=== PATIENT | female | born 1980 | race Caucasian/White ===

== ENCOUNTER 2016-11-14 09:03 | Emergency (ER) | payer OTHER ==
[2016-11-14] MEDS: NS 0.9% 1000 ML* 2,000 ML IV ONE (09:51)
[2016-11-14 10:06] LABS: Hematocrit 39 % (35-47); Hemoglobin 13.7 g/dl (12.0-16.0); Mean Corpuscular HGB Conc 35 g/dl (31-36); Mean Corpuscular Hemoglobin 33 pg (27-31); Mean Corpuscular Volume 94 fL (80-97); Mean Platelet Volume 10 um3 (7.4-10.4); Red Blood Count 4.19 10^6/ul (4.0-5.4); Red Cell Distribution Width 13 % (10.5-15); White Blood Count 6.8 10^3/ul (3.5-10.8)
--- NOTE | 2016-11-14 10:12 | RAD ---
INDICATION: Short of breath COMPARISON: December 29, 2013 TECHNIQUE: PA and lateral dual-energy views were obtained. FINDINGS: Bones/Soft Tissues: There are no acute bony findings. Cardiomediastinal: The cardiomediastinal silhouette is normal. Lungs: There are no infiltrates. Pleura: There are no pleural effusions. Other: None IMPRESSION: NO ACTIVE DISEASE.
[2016-11-14] MEDS ORDERED: Al Hydrox/Mg Hydrox/Simet LIQ* 30 ML UDC PO ONE (10:22)
[2016-11-14] MEDS ORDERED: Lidocaine 2% VISCOUS* 15 ML UDC PO ONE (10:22)
[2016-11-14 10:27] LABS: ALT 13 U/L (7-52); AST 17 U/L (13-39); Albumin 4.2 g/dL (3.2-5.2); Alkaline Phosphatase 70 U/L (34-104); Anion Gap 10 mmol/L (2-11); BUN/Creatinine Ratio 13.9 (8-20); Blood Urea Nitrogen 11 mg/dL (6-24); CO2 Carbon Dioxide 21 mmol/L (22-32); Calcium 9.3 mg/dL (8.6-10.3); Chloride 103 mmol/L (101-111); EGFR African American 104.7 (>60); EGFR Non-African American 81.4 (>60); Globulin 3.3 g/dL (2-4); Glucose 85 mg/dL (70-100); Lipase 18 U/L (11.0-82.0); Potassium 3.7 mmol/L (3.5-5.0); Sodium 134 mmol/L (133-145); Total Protein 7.5 g/dL (6.4-8.9)
--- NOTE | 2016-11-14 10:56 | RAD ---
HISTORY: Epigastric pain, history of gallstones COMPARISONS: CT dated August 01, 2016 TECHNIQUE: Multiple transverse and longitudinal ultrasound images were obtained of the right upper quadrant of the abdomen using grayscale and color Doppler imaging. FINDINGS: LIVER: The liver is normal in shape, size, contour, and echogenicity. There are no focal parenchymal masses. There is normal hepatopedal flow of the portal vein on Doppler imaging. BILIARY TREE: There is no intrahepatic or extrahepatic biliary dilatation. The common duct measures 0.4 cm. GALLBLADDER: The gallbladder is distended. Multiple shadowing echogenic foci consistent with gallstones are noted. There is no gallbladder wall thickening, or pericholecystic fluid. The technologist reports a positive sonographic Rhodes sign.. PANCREAS: The head of the pancreas is unremarkable. The tail of the pancreas is not well visualized secondary to overlying bowel gas. RIGHT KIDNEY: The right kidney is normal in shape, size, contour, and echogenicity. There is no hydronephrosis or nephrolithiasis. The right kidney measures 11.5 x 5.4 x 5.8 cm. AORTA AND IVC: The aorta and IVC are unremarkable. FLUID: There are no pleural effusions. There is no free fluid within the hepatorenal recess. OTHER FINDINGS: None. IMPRESSION: CHOLELITHIASIS, WITH A POSITIVE SONOGRAPHIC RHODES SIGN. THE IMAGING FEATURES ARE INDETERMINATE FOR ACUTE CHOLECYSTITIS.
--- NOTE | 2016-11-14 11:19 | ED ---
Abdominal Pain/Female - HPI Summary HPI Summary: 36F presents with epigastric pain and SOB for 2 months that got worst last night. She had an endoscope gone a week ago that was normal. She had a CT done a month ago that was normal. She has had SOB with the pain before. It has been found that she has had gallstones before. She states she came in because the pain has been intense. She denies any fever, nausea, vomiting, diarrhea, or constipation. She denies any chest pain. She denies any family history of UC or Crohns. She denies any dysuria, hematuria, flank pain, frequency, hematuria. She denies any blood in her stool. She has a family history of heart disease. She denies any DM or HTN. She is not a smoker. She denies any cough. She has been on acid reflux medication before without relief. She states the pain is worst with food. - History of Current Complaint Chief Complaint: EDAbdPain Stated Complaint: ABD PAIN, SHORT OF BREATH Time Seen by Provider: 11/14/16 09:12 Hx Last Menstrual Period: END NOVEMBER Pain Intensity: 8 Allergies/Adverse Reactions: Allergies Allergy/AdvReac Type Severity Reaction Status Date / Time Sulfa Antibiotics Allergy Severe Hives Verified 08/01/16 09:24 PMH/Surg Hx/FS Hx/Imm Hx Endocrine/Hematology History: Reports: Hx Thyroid Disease - HYPO Denies: Hx Diabetes Cardiovascular History: Denies: Hx Hypertension History: Denies: Hx Dialysis, Hx Renal Disease - Surgical History Surgery Procedure, Year, and Place: THYROID DUCT CYST REMOVED Infectious Disease History: No Infectious Disease History: Denies: Traveled Outside the [place] in Last 30 Days - Family History Known Family History: Positive: Cardiac Disease - Social History Alcohol Use: Occasionally Substance Use Type: Reports: None Smoking Status (MU): Never Smoked Tobacco Review of Systems Negative: Fever Negative: Chest Pain Positive: Shortness Of Breath Positive: Abdominal Pain - epigastric. Negative: Vomiting, Diarrhea, Nausea All Other Systems Reviewed And Are Negative: Yes Physical Exam Triage Information Reviewed: Yes Vital Signs On Initial Exam: Initial Vitals Temp Pulse Resp BP Pulse Ox 98 F 72 18 116/67 100 11/14/16 09:04 11/14/16 09:04 11/14/16 09:04 11/14/16 09:04 11/14/16 09:04 Vital Signs Reviewed: Yes Appearance: Positive: Well-Appearing Skin: Positive: Warm, Dry Head/Face: Positive: Normal Head/Face Inspection Eyes: Positive: Normal, Conjunctiva Clear Respiratory/Lung Sounds: Positive: Clear to Auscultation, Breath Sounds Present Cardiovascular: Positive: Normal, RRR Abdomen Description: Positive: Soft, Other: - tender in epigastric region, neg booker test, no rebound Bowel Sounds: Positive: Present - Sarabjit Coma Scale Coma Scale Total: 15 Diagnostics - Vital Signs Vital Signs Temp Pulse Resp BP Pulse Ox 11/14/16 09:39 98 F 72 16 116/67 100 11/14/16 09:04 98 F 72 18 116/67 100 - Laboratory Lab Results: Lab Results 11/14/16 11/14/16 11/14/16 Range/Units 09:50 09:50 09:50 WBC 6.8 (3.5-10.8) 10^3/ul RBC 4.19 (4.0-5.4) 10^6/ul Hgb 13.7 (12.0-16.0) g/dl Hct 39 (35-47) % MCV 94 (80-97) fL MCH 33 H (27-31) pg MCHC 35 (31-36) g/dl RDW 13 (10.5-15) % Plt Count 227 (150-450) 10^3/ul MPV 10 (7.4-10.4) um3 Neut % (Auto) 77.4 (38-83) % Lymph % (Auto) 17.8 L (25-47) % [place] % (Auto) 3.7 (1-9) % Eos % (Auto) 0.5 (0-6) % Baso % (Auto) 0.6 (0-2) % Absolute Neuts (auto) 5.3 (1.5-7.7) 10^3/ul Absolute Lymphs (auto) 1.2 (1.0-4.8) 10^3/ul Absolute Monos (auto) 0.2 (0-0.8) 10^3/ul Absolute Eos (auto) 0 (0-0.6) 10^3/ul Absolute Basos (auto) 0 (0-0.2) 10^3/ul Absolute Nucleated RBC 0.01 10^3/ul Nucleated RBC % 0.1 D-Dimer, Quantitative < 200 (Less Than 230) ng/mL Sodium 134 (133-145) mmol/L Potassium 3.7 (3.5-5.0) mmol/L Chloride 103 (101-111) mmol/L Carbon Dioxide 21 L (22-32) mmol/L Anion Gap 10 (2-11) mmol/L BUN 11 (6-24) mg/dL Creatinine 0.79 (0.51-0.95) mg/dL Est GFR ( Amer) 104.7 (>60) Est GFR (Non-Af Amer) 81.4 (>60) BUN/Creatinine Ratio 13.9 (8-20) Glucose 85 (70-100) mg/dL Calcium 9.3 (8.6-10.3) mg/dL Total Bilirubin 0.80 (0.2-1.0) mg/dL AST 17 (13-39) U/L ALT 13 (7-52) U/L Alkaline Phosphatase 70 (34-104) U/L Troponin I 0.00 (<0.04) ng/mL C-React Prot High Sens 5.33 mg/L Total Protein 7.5 (6.4-8.9) g/dL Albumin 4.2 (3.2-5.2) g/dL Globulin 3.3 (2-4) g/dL Albumin/Globulin Ratio 1.3 (1-3) Lipase 18 (11.0-82.0) U/L Beta HCG, Quant < 0.60 mIU/mL Result Diagrams: 11/14/16 09:50 11/14/16 09:50 Lab Statement: Any lab studies that have been ordered have been reviewed, and results considered in the medical decision making process. - Radiology chest Xray Interpretation: No Acute Changes Radiology Interpretation Completed By: Radiologist - Ultrasound No standard instances Ultrasound Interpretation: Positive (See Comments) - IMPRESSION: CHOLELITHIASIS , WITH A POSITIVE SONOGRAPHIC BOOKER SIGN. THE IMAGING FEATURES ARE INDETERMINATE FOR ACUTE CHOLECYSTITIS. Ultrasound Interpretation Completed By: Radiologist - EKG No standard instances Cardiac Rate: NL EKG Rhythm: Sinus Rhythm ST Segment: Normal Abdominal Pain Fem Course/Dx - Course Course Of Treatment: 36F presents with epigastric pain and SOB for 2 months that got worst last night. She had an endoscope gone a week ago that was normal. She had a CT done a month ago that was normal. She has had SOB with the pain before. It has been found that she has had gallstones before. She states she came in because the pain has been intense. She denies any fever, nausea, vomiting, diarrhea, or constipation. She denies any chest pain. She states the pain is worst with food. on exam tender in epigastric region, no rebound, neg booker. labs normal WBC and crp, u/a normal, LFT normal. ekg normal. troponin, d-dimer, and chest xray normal. u/s shows gallstones. spoke dr jimenez said follow up in office. patient understands and agrees with plan - Diagnoses Differential Diagnosis: Positive: Gall Bladder Disease, Peptic Ulcer Disease, Urinary Tract Infection Provider Diagnoses: Cholelithiasis, Epigastric pain Discharge - Discharge Plan Condition: Good Disposition: HOME Patient Education Materials: Gallstones (ED) Referrals: Avery Joy DO [Primary Care Provider] - Cesia Jimenez MD [Medical Doctor] - Additional Instructions: Take Tylenol or ibuprofen for pain every 6 hours Follow up with primary within 7 days Follow up with surgery Follow a low fat diet to discourage gall bladder from katelyn Return to ED if develop any fever, severe vomiting, or any new or worsening symptoms
[2016-11-14 11:59] VITALS: BP 117/59
[2016-11-14 12:01] LABS: Urine Bacteria Absent (Absent); Urine Bilirubin Negative (Negative); Urine Glucose Negative (Negative); Urine Nitrite Negative (Negative)
== END 2016-11-14 11:57 | disposition home or self-care (01) ==
LOC: ED 09:03
DX: R10.13 Epigastric pain (principal); R06.02 Shortness of breath; K80.20 Calculus of gallbladder without cholecystitis without obstruction
CPT/HCPCS: 36415; 71020; 76705; 80053; 81003; 81015; 83690; 84484; 84702; 85025; 85379; 86141; 93005; 96360; 99282; A9270-GY

== ENCOUNTER 2016-11-17 07:33 | Day surgery (SDC) | payer OTHER ==
[~2016-11-17 07:33] MED LIST: Buffered Lidocaine 0.9% SYRIN* 5 ML/SYR SYRINGE INTRADERM ONE; Sodium Citrate/Citric Acid* 15 ML UDC PO ONE
[2016-11-17 08:04] LABS: UR Preg Internal Control QC Line Present
[2016-11-17] MEDS ORDERED: Sodium Citrate/Citric Acid* 15 ML UDC ONE (08:09)
[2016-11-17] MEDS ORDERED: ceFAZolin 2 GM PREMIX(*) 2 GM/50 ML BAG IVPB ONE (08:09)
[2016-11-17] MEDS ORDERED: Buffered Lidocaine 0.9% SYRIN* 5 ML/SYR SYRINGE ONE (08:09)
[2016-11-17] MEDS ORDERED: Ketorolac INJ* 30 MG/ML 1 ML VIAL ONE (08:09)
[2016-11-17] MEDS ORDERED: Bupivacaine 0.25% EPI 200,000* 30 ML SDV ONE (09:01)
[2016-11-17] MEDS ORDERED: Neostigmine Methylsulfate* 2 MG/2 ML SYRINGE ONE (09:21)
[2016-11-17] MEDS ORDERED: Dexamethasone IV* 4 MG/ML 1 ML (4 MG) ONE (09:21)
[2016-11-17] MEDS ORDERED: Propofol* 10 MG/ML 20 ML BTL IV PUSH ONE (09:21)
[2016-11-17] MEDS ORDERED: Lidocaine 2% PF * 5 ML VIAL ONE (09:21)
[2016-11-17] MEDS ORDERED: Glycopyrrolate IV* 0.2 MG/ML 1 ML VIAL ONE (09:21)
[2016-11-17] MEDS ORDERED: fentaNYL* 50 MCG/ML 2 ML VIAL (100 MCG VIAL) ONE ×2 (09:21→10:55)
[2016-11-17] MEDS ORDERED: Rocuronium* 10 MG/ML VIAL ONE (09:25)
[2016-11-17] MEDS ORDERED: DiMENhydriNATE IV* 50 MG/ML VIAL IV PUSH PRN (09:52)
--- NOTE | 2016-11-17 10:28 | PN ---
Progress Note - Progress Note Date of Service: 11/17/16 Note: Brief Operative Note Operation date: 11/17/2016 Preoperative diagnosis: cholelithiasis Postoperative diagnosis: Same Procedure: Laparoscopic Cholecystectomy Surgeon: Dr. Romo Assist: Maggy JOHN, TYLER CarltonS Anesthesia: General EBL: 30 mL Fluids: 1500 mL LR Specimen: Gallbladder Drain: none Findings: See dictated note
[2016-11-17] MEDS ORDERED: HYDROcodone/ACETAMIN 5-325 MG* 1 TAB PO PRN (10:29)
[2016-11-17] MEDS ORDERED: HYDROcodone/ACETAMIN 5-325 MG* 1 TAB ONE (10:55)
[2016-11-17] MEDS: fentaNYL* 50 MCG/ML 2 ML VIAL (100 MCG VIAL) IV PRN ×4 (10:57→11:09)
[2016-11-17 12:17] VITALS: BP 105/56
--- NOTE | 2016-11-17 15:00 | OP ---
CC: Dr. Avery Joy * DATE OF OPERATION: 11/17/16 - [facility] DATE OF : 76 SURGEON: Odilon Romo MD BUTTER LIQUEFIER: VELVET Ruff ANESTHESIOLOGIST: Dr. Ender Garcia. ANESTHESIA: General anesthetic and local infiltration by the surgeon. PRE-OP DIAGNOSIS: Symptomatic cholelithiasis. POST-OP DIAGNOSIS: Symptomatic cholelithiasis. OPERATIVE PROCEDURE: Laparoscopic cholecystectomy. DESCRIPTION OF PROCEDURE: The patient was supine on the operating room table. After adequate general anesthetic, compression stockings, Lisseth Hugger warmer, and intravenous antibiotics, the abdomen was prepped with antiseptic and draped in a sterile fashion. Local infiltrative anesthesia was administered. Small umbilical incision was created. A blunt port was cannula was placed. Insufflation was carried out with carbon dioxide. Additional cannulae, 12 mm subxiphoid and 5 mm right upper quadrant and right anterior axillary line were placed through small stab wounds under direct vision. The gallbladder was tended up. The areolar tissue was taken down and the cystic duct and cystic artery were readily identified, clipped, and divided. The cystic-common duct junction was readily identified and kept out of harm's way. The gallbladder was taken off the liver bed without difficulty. Hemostasis was obtained using electrocautery. The gallbladder was removed through the subxiphoid port, which needed to be enlarged somewhat for the magnitude of the stones. The operative site was again examined. Hemostasis was good. The cannulae were removed. Pneumoperitoneum allowed to escape. Umbilical and epigastric fascia were closed with 0 Polysorb, skin with 5-0 Polysorb followed by Steri-Strips. She tolerated the procedure well, was awakened and brought to Recovery in good condition. No complications. No drains. Pathologic specimen is gallbladder. Sponge and instrument counts correct. Estimated blood loss is 30 mL. [id number]/[facility] #: [id number] MTDD
== END 2016-11-17 12:43 | disposition home or self-care (01) ==
LOC: OR 07:33
PROVIDERS: ATTEND Surgery
DX: K80.10 Calculus of gallbladder with chronic cholecystitis without obstruction (principal); E03.9 Hypothyroidism, unspecified; M19.90 Unspecified osteoarthritis, unspecified site
CPT/HCPCS: 81025; 88304; A9270-GY; J0690; J1100; J1885; J2704; J3010

== ENCOUNTER 2017-11-20 15:43 | Emergency (ER) | payer OTHER ==
[2017-11-20 16:05] VITALS: BP 119/71
--- NOTE | 2017-11-20 16:32 | UC ---
Knee Pain HPI - HPI Summary HPI Summary: 37 yo female presents with chronic right knee pain. She tells me that she is followed by Dr. Rubin for this and has seen him within the last month. He is working to get "gel injections" approved by her insurance. Over the last 2-3 days she has had increased right knee pain. No injury. She called Dr. Rubin would could not see her today and recommended that she come to urgent care. Pt is scheduled to get a knee brace fitted in [address] Rubin. Pt denies numbness or tingling. - History of Current Complaint Chief Complaint: UCLowerExtremity Stated Complaint: KNEE INJURY Time Seen by Provider: 11/20/17 16:32 Hx Obtained From: Patient Hx Last Menstrual Period: end of September 2017 Onset/Duration: Gradual Onset Severity Initially: Severe Severity Currently: Severe Pain Intensity: 10 Pain Scale Used: 0-10 Numeric - Allergies/Home Medications Allergies/Adverse Reactions: Allergies Allergy/AdvReac Type Severity Reaction Status Date / Time Sulfa (Sulfonamide Allergy Severe Hives Verified 11/20/17 16:06 Antibiotics) PMH/Surg Hx/FS Hx/Imm Hx Previously Healthy: Yes Endocrine History: Hypothyroidism Psychological History: Anxiety, Depression - Surgical History Surgical History: Yes Surgery Procedure, Year, and Place: THYROID DUCT CYST REMOVED. ENDOSCOPY - Family History Known Family History: Positive: Cardiac Disease - Social History Occupation: Employed Full-time Lives: With Family Alcohol Use: None Substance Use Type: None Smoking Status (MU): Never Smoked Tobacco Review of Systems Constitutional: Negative Skin: Negative Respiratory: Negative Cardiovascular: Negative Neurovascular: Negative Musculoskeletal: Other: - Right knee pain Neurological: Negative Psychological: Negative All Other Systems Reviewed And Are Negative: Yes Physical Exam - Summary Physical Exam Summary: GENERAL: NAD. WDWN. No pain distress. SKIN: No rashes, sores, lesions, or open wounds. NECK: Supple. Nontender. No lymphadenopathy. CHEST: No accessory muscle use. Breathing comfortably and in no distress. CV: Pulses intact popliteal, PT, and DP. Brisk cap refill. MSK: RIGHT KNEE: TTP about all right knee with no specific tenderness. Strength 5/5. No edema or obvious bony deformities. Negative Ariadne, A/P drawer, Jose, and varus/valgus stress. NEURO: Alert. Sensations intact and symmetric B/L LEs PSYCH: Age appropriate behavior. Triage Information Reviewed: Yes Vital Signs: Initial Vital Signs Temp 98.2 F 11/20/17 16:02 Pulse 72 11/20/17 16:02 Resp 12 11/20/17 16:02 BP 119/71 11/20/17 16:02 Pulse Ox 100 11/20/17 16:02 Knee Pain Course/Dx - Course Course Of Treatment: Pt declined XR today as she had an XR and an MRI about a month ago from Dr. Rubin. Toradol IM 30mg given in clinic and crutches provided as she has pain with ambulation. Advised to schedule a f/u with Dr. Rubin this week - Differential Dx/Diagnosis Provider Diagnoses: Right knee pain Discharge - Sign-Out/Discharge Documenting (check all that apply): Discharge/Admit/Transfer - Discharge Plan Condition: Stable Disposition: HOME Patient Education Materials: Crutch Instructions (ED), Knee Pain (ED) Forms: *Work Release Referrals: Avery Joy DO [Primary Care Provider] - Johnnie Rubin MD [Medical Doctor] - As Soon As Possible Additional Instructions: If you develop a fever, shortness of breath, chest pain, new or worsening symptoms - please call your PCP or go to the ED. 1) Please schedule a follow up appointment with Dr. Rubin as soon as possible - Billing Disposition and Condition Condition: STABLE Disposition: Home
[2017-11-20] MEDS ORDERED: Ketorolac INJ* 30 MG/ML 1 ML VIAL IM ONE (16:48)
== END 2017-11-20 17:35 | disposition home or self-care (01) ==
LOC: UCEAST 15:43
DX: M25.561 Pain in right knee (principal); G89.29 Other chronic pain; Z88.2 Allergy status to sulfonamides
CPT/HCPCS: 96372; 99212; G0463; J1885

== ENCOUNTER 2018-11-07 16:25 | Emergency (ER) | payer OTHER ==
[2018-11-07 16:31] VITALS: BP 104/63
--- OUTSIDE RECORDS SUMMARY | 2018-11-07 16:31 | XMS REPORT | Continuity of Care Document ---
:1980 External Reference #:[id number] Author Name Saeid Swartz M.D. Address [address] [facility] [address] [place] [address] Care Team Providers Name Role Phone HCP given Primary Care Physician Unavailable Payers Date Identification Numbers Payment Provider Subscriber Effective: Policy Number: [id number] [facility] Fredis Sr 2016 PayID: [id number] [address] [place] [address] Problems Active Problems Provider Date Hypothyroidism Avery Joy D.O. Onset: 04/18/2014 Vitamin D deficiency Avery Joy D.O. Onset: 09/25/2014 Migraine with typical aura Avery Joy D.O. Onset: 09/25/2014 Localized, primary osteoarthritis Saeid Swartz M.D. Onset: 12/29/2017 Low back pain Saeid Swartz M.D. Onset: 12/29/2017 Resolved Problems Moderate recurrent major depression Avery Joy D.O. Onset: 09/25/2014 Resolved: 01/15/2016 Generalized anxiety disorder Avery Joy D.O. Onset: 09/25/2014 Resolved: 01/15/2016 Insomnia Avery Joy D.O. Onset: 10/30/2014 Resolved: 01/15/2016 Chronic pharyngitis Avery Joy D.O. Onset: 09/25/2014 Resolved: 01/15/2016 Amenorrhea Avery Joy D.O. Onset: 10/22/2015 Resolved: 01/15/2016 Dizziness and giddiness Avery Joy D.O. Onset: 10/22/2015 Resolved: 01/15/2016 Visual field defect Avery Joy D.O. Onset: 10/22/2015 Resolved: 01/15/2016 Malaise and fatigue Patty Perales RPA-C Onset: 07/25/2014 Resolved: 01/15/2016 Disorder of thyroid gland Avery Joy D.O. Onset: 08/25/2014 Resolved: 01/15/2016 Neck pain Avery Joy D.O. Onset: 01/01/2014 Resolved: 01/15/2016 Benign paroxysmal positional vertigo Avery Joy D.O. 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 Tobacco Use Reviewed: 04/14/17 Never Smoked Cigarettes Smoking Status Reviewed: 04/14/17 Never Smoked Cigarettes ETOH Use Rarely consumes alcohol Recreational Drug Use Denies Drug Use Tobacco Use Start: Unknown Patient has never smoked Tobacco Use Start: Unknown Non Smoker Exercise Type/Frequency Exercises regularly every day working out # [employer] 1-5 Allergies, Adverse Reactions, Alerts Active Allergies Reaction Severity Comments Date Sulfa hives 12/21/2011 Medications Active Medications SIG Qnty Indications Ordering Date Provider Cane use as needed M25.561 Saeid Swartz, 11/02/2018 [facility] [place] Multivitamin Adult 1 by mouth every Unknown 11/01/2018 day Tablets Levothyroxine Sodium 1 by mouth every E03.9 Saeid Swartz, 09/14/2018 morning on an M.D. 75mcg Tablets empty stomach; blood test due November 2018 Lo Loestrin Fe take one a day as Unknown 09/13/2018 1mg-10 mcg directed starting / 10 mcg Tablets on 09/16/18 Iron (OTC) one po daily Unknown 08/31/2018 Vitamin D3 1 tab by mouth 90tabs E55.9 Avery Joy, 09/25/2014 5000Unit every day or 7 D.O. Tablets tabs once a week Vitamin B12 1 daily Unknown 2500mcg History Medications Levothyroxine Sodium Take 1 Tablet By 90tabs [facility]03.9 [facility] 09[facility]2018 - 75mcg Mouth Dianna Varela 11/02/2018 Tablets Daily-Alternate With 50mcg For Average Of 62.5MG Dose Daily Celecoxib 1 by mouth every day 30caps M25.561 [facility] [place], 08/06/2018 - 200mg Capsules as needed for knee Daniela Breaux 09/14/2018 pain Levothyroxine Sodium take 1 tablet by 45tabs E03.9 [place], 03/14/2018 - 50mcg mouth every other Daniela Breaux 09/14/2018 Tablets day (alternating with 75mcg dose), in the morning, on an empty stomach; for thyroid Metaxalone 1 by mouth three 30tabs M54.9 [facility] [place] 03/14/2018 - 800mg Tablets times a day as Daniela Breaux 03/24/2018 needed for upper back, shoulder and chest pain Lidocaine apply 12 hours on 12 30units B02.9 [facility], 01/13/2018 - 5% Patches hours off as needed Dianna Varela 03/13/2018 to area of pain. Valacyclovir HCL 1 three times a day 30tabs B02.9 [facility], 01/13/2018 - 1gm for 10 days Dianna Varela 01/23/2018 Tablets Cymbalta 2 by mouth every Unknown 12/28/2017 - 60mg Caps DR Massimo waters, for back 09/13/2018 pain Hydroxychloroquine 2 tabs once daily, Mohan Osborne 10/16/2017 - Sulfate for arthritis diann Suarez 09/13/2018 200mg Tablets Aleve one tab po twice day Unknown 10/16/2017 - 220mg Tablets 09/13/2018 Doxycycline Hyclate 1 twice a day for 28 56caps A69.23 [facility], 2017 - 100mg days Aleyda VarelaO. 10/11/2017 Capsules Naproxen Unknown 09/12/2017 - 11/10/2017 Tramadol HCL 1-2 by mouth every 6 60tabs A69.23 [place], 06/14/2017 - 50mg Tablets hours as needed for Avery D.OStefani 07/14/2017 pain Amoxicillin 1 po tid x 28days 84tabs A69.23 [place], 06/12/2017 - 500mg Tablets Avery D.OStefani 07/10/2017 Benzonatate 1 by mouth three 30caps R05 [place], 04/14/2017 - 200mg Capsules times a day as Daniela Breaux 04/24/2017 needed for cough Prednisone 1 per morning x 5 5tabs J20.9 [place], 04/04/2017 - 20mg Tablets days for bronchitis Daniela Breaux 04/12/2017 Meloxicam 1 tablet by mouth Mohan Osborne 03/08/2017 - 7.5mg Tablets twice daily t M.DStefani 06/11/2017 Diclofenac Sodium apply 4 g of gel to 100gm M25.561 [place] 01/26/2017 - 1% Gel affected area 4 Daniela Breaux 02/25/2017 times daily (maximum: 16 g per joint per day) for knee pain M25.562 Azithromycin take 2 tablets by 6tabs Avery Joy, 12/02/2016 - 250mg mouth one time on the D.O. 12/07/2016 Tablets first day then take 1 tablet by mouth daily for 4 days Ventolin HFA inhale 2 puffs by 8gm J98.1 Avery Joy, 11/29/2016 - mouth every 4 hours 1 D.O. 06/11/2017 108(90Base) mcg/Act as needed for Aerosol bronchospasm Omeprazole 1 by mouth every day 30caps R10.1 Avery Joy, 09/01/2016 - 40mg 3 D.O. 10/23/2016 Capsules Famotidine take 1 tablet by 60tabs R10.1 Avery Joy 08/29/2016 - 40mg mouth 2 times per day 3 D.O. 10/23/2016 Tablets for gastroesophageal reflux disease Meloxicam take 1 tablet twice Jeramie Osborne 08/16/2016 - 7.5mg daily as needed M.DStefani 11/28/2016 Tablets Hydrocodone 1 by mouth every 4-6 30tabs 723.1 Avery Joy, 06/17/2016 - Bitartrate/Acetamino hours as needed for D.O. 11/28/2016 phen extreme pain. 5-300mg Tablets Tramadol HCL 1-2 by mouth every 6 120tabs M79.7 Avery Joy, 2016 - 50mg hours as needed for D.O. 06/15/2016 Tablets pain Tramadol HCL 1-2 by mouth every 6 30tabs 724.3 Saeid Swartz, 2015 - 50mg hours as needed for M.D. 05/23/2016 Tablets pain Baclofen 1 cap by mouth at 30tabs M79.7 Avery Joy, 04/28/2016 - 20mg Tablets night for muscle D.O. 05/07/2016 spasm/pain Wrist Immobilizer use as directed 1units M25.5 Saeid Swartz, 2015 - (Right) 31 M.D. 06/11/2017 Diclofenac Sodium Apply pea sized 100gm M22.4 Avery Joy, 10/22/2015 - 1% amount to both knee 1 D.O. 10/23/2016 Gel twice a day as needed for knee pain Arnica use twice a day to 45gm M22.4 Avery Joy, 10/22/2015 - Gel knees for pain 2 D.O. 10/23/2016 Ortho Tri-Cyclen 1 by mouth every day [facility] 10/08/2015 - (28) Soakers Supervisor of 11/28/2016 0.18/0.215/0.25 Endy mg-35 mcg Tablets Buspirone HCL 1 cap by mouth twice 30tabs Avery Joy, 10/05/2015 - 7.5mg a day D.O. 10/20/2015 Tablets Ondansetron HCL 1 by mouth every 4 10tabs R11.0 Saeid Swartz, 2015 - 4mg hours as needed for M.D. 09/25/2015 Tablets nausea Benzonatate 1 by mouth three 30caps R05 Saeid Swartz, 06/13/2015 - 200mg times a day as needed M.D. 06/23/2015 Capsules for cough Metaxalone 1 by mouth three 15tabs M54.2 DicharSaeid, 05/27/2015 - 800mg times a day as needed M.D. 06/06/2015 Tablets for neck pain Levothyroxine Sodium take one tablet by 90tabs E03.9 Avery Joy, 05/04 - mouth daily-alternate D.O. 09/14/2018 75mcg Tablets with 50mcg-- for average of 62.5mg dose daily. Tramadol HCL 1-2 by mouth every 6 80tabs 724.3 Avery Joy, 12/30/2014 - 50mg hours as needed for D.O. 01/29/2015 Tablets pain Cyclobenzaprine HCL 1 tab by mouth every 30tabs 724.3 Avery Joy, - night for back pain. D.O. 01/29/2015 5mg Tablets will make you drowsy Magnesium Oxide 1-5 tablets daily 150caps G43.1 Avery Joy, 2014 - 400mg increase as 09 D.O. 09/13/2018 Capsules tolerated. Escitalopram Oxalate 1 tablets by mouth 30tabs 296.3 Avery Joy, 09/25 - daily 2 D.O. 05/04/2015 10mg Tablets Proair HFA 1-2 puffs four times 8.5units 786.2 Avery Joy, 08/08/2014 - a day as needed D.O. 08/22/2014 108(90Base) mcg/Act Aerosol Fluticasone 2 sprays into each 1units 461.0 Avery Joy, 04/24/2014 - Propionate nostril every day for D.O. 07/24/2014 50mcg/Act nasal congestion. Suspension ginny allergies. rinse mouth post Levothyroxine Sodium Take One Tablet By 90tabs E03.9 Avery Joy, 04/18 - Mouth Every Morning D.O. 03/14/2018 50mcg Tablets On An Empty Stomach 30 Minutes Before Breakfast Levonorgestrel/Jazmine Mccormick 04/17/2014 - júnior Mckeon MD 10/08/2015 0.1-20mg-mcg Tablets Hydrocodone 1-2 by mouth every 30tabs 723.1 Avery Joy, 01/23/2014 - Bitartrate/Acetamino 4-6 hours D.O. 04/17/2014 phen 5-300mg Tablets Cyclobenzaprine HCL 1 tab by mouth every 30tabs 729.1 Avery Joy, - night for back pain. D.O. 04/17/2014 5mg Tablets will make you drowsy Ultram Take 1 tablet by 30tabs 723.1 Avery Joy, 01/01/2014 - 50mg Tablets mouth every 6 hours D.O. 01/23/2014 as needed for pain Levothyroxine Sodium Take One Tablet By 90tabs Avery Joy, 2013 - Mouth Once Daily D.O. 04/18/2014 25mcg Tablets Sprintec 28 1 po qd 3pkts Unknown 07/28/2013 - 04/17/2014 0.25-35mg-mcg Tablets Aleve 2 cap by mouth twice 120caps 719.4 Avery Joy, 07/12/2013 - 220mg Capsules a day 6 D.O. 05/04/2015 Joint Support Avery Joy, 06/13/2013 - Formula D.O. 05/04/2015 Capsules PT For Bilateral evaluate and treat, 719.4 Saeid Swartz, 05/31/2013 - Knee Pain modalities prn, 6 M.D. 04/17/2014 instruct in hep; (Xray today shows mod OA in pf compartment, mild in med compartment) Ultram Take 1 tablet by 30tabs 723.1 Avery Joy, 03/22/2013 - 50mg Tablets mouth every 6 hours D.O. 06/20/2013 as needed for pain Skelaxin Take 1 tablet by 15tabs 729.1 Avery Joy, 03/22/2013 - 800mg mouth up to 3 times D.O. 06/20/2013 Tablets per day for muscle spasm with pain take at night PT For Left Shoulder evaluate and treat, 719.4 Saeid Swartz, 2012 - Pain modalities prn, 1 M.D. 04/17/2014 instruct in hep PT For Bilateral please evaluate and 726.4 Saeid Swartz, 01/04/2012 - Wrist Pain treat, instruct in Daniela 10/08/2012 hep, modalities prn Lisa one tablet po daily Unknown 12/09/2011 - 0.35mg Tablets 07/16/2013 Meloxicam 1 tab daily Unknown - 7.5mg 09/01/2016 Tablets Sprintec 28 1 by mouth every day Unknown - 09/16/2018 0.25-35mg-mcg Tablets Medications Administered in Office Medication SIG Qnty Indications Ordering Provider Date TB Intradermal Test Saeid Swartz M.D. 12/29/2017 Injection injection, kenalog, 10 mg Avery Joy D.OStefani 07/18/2017 Injection TB Intradermal Test Nurse's Schedule 01/13/2016 Injection Toradol 15MG. Avery Joy D.OStefani 03/22/2013 Injection SC/Im Injections Avery Joy D.O. 03/22/2013 Injection Immunizations CPT Code Status Date Vaccine Lot # [id number] Given 03/20/2017 Influenza Virus Vaccine, Quadrivalent, Split, [id number] Preservative Free 51034 Given 06/14/2016 Influenza Virus Vaccine, Quadrivalent, Split, [id number] Preservative Free 13999 Given 05/04/2015 Influenza Virus Vaccine, Quadrivalent, Split, [id number] Preservative Free 27087 Given 02/22/2013 Flu, Split Virus 3Yrs [id number] 03249 Given 05/11/2012 Flu Vaccine Split Virus 3Yrs And Older [id number] 93444 Given 12/04/2010 Adacel or Boostrix, TDaP Vital Signs Date Vital Result Comment 11/02/2018 4:20pm BP Systolic 120 mmHg BP Diastolic 80 mmHg Weight 199.50 lb w/sneakers 09/14/2018 4:32pm BP Systolic 112 mmHg BP Diastolic 72 mmHg Weight 196.00 lb with rainboots 08/06/2018 5:42pm BP Systolic 112 mmHg BP Diastolic 80 mmHg Height 66.25 inches 5'6.25" Weight 188.00 lb with shoes BMI (Body Mass Index) 30.1 kg/m2 03/14/2018 12:07pm BP Systolic 110 mmHg BP Diastolic 74 mmHg Weight 188.00 lb 01/13/2018 11:15am BP Systolic 106 mmHg BP Diastolic 60 mmHg 12/29/2017 8:42am BP Systolic 112 mmHg BP Diastolic 74 mmHg Height 66 inches 5'6" Weight 193.50 lb BMI (Body Mass Index) 31.2 kg/m2 11/11/2017 9:47am BP Systolic 110 mmHg BP Diastolic 70 mmHg Body Temperature 98.1 F Height 66 inches 5'6" Weight 194.00 lb with sandals BMI (Body Mass Index) 31.3 kg/m2 09/13/2017 4:38pm BP Systolic 114 mmHg BP Diastolic 60 mmHg Weight 194.00 lb 07/18/2017 4:52pm BP Systolic 110 mmHg BP Diastolic 68 mmHg Weight 188.00 lb 06/14/2017 5:26pm BP Systolic 124 mmHg BP Diastolic 70 mmHg 06/12/2017 4:16pm BP Systolic 132 mmHg BP Diastolic 70 mmHg Body Temperature 98.3 F 04/14/2017 2:14pm BP Systolic 102 mmHg BP Diastolic 62 mmHg Heart Rate 76 /min reg Respiratory Rate 12 /min not laboured Body Temperature 98.2 F Weight 188.00 lb with boots 04/04/2017 4:30pm BP Systolic 98 mmHg BP Diastolic 58 mmHg Heart Rate 70 /min O2 % BldC Oximetry 97 % Body Temperature 98.4 F 03/20/2017 4:52pm BP Systolic 102 mmHg BP Diastolic 70 mmHg Body Temperature 98.3 F Weight 188.00 lb w/boots 01/26/2017 5:12pm BP Systolic 100 mmHg BP Diastolic 68 mmHg Weight 185.00 lb with boots 11/29/2016 4:50pm BP Systolic 102 mmHg BP Diastolic 66 mmHg Heart Rate 83 /min O2 % BldC Oximetry 97 % Body Temperature 98.1 F Height 66 inches 5'6" Weight 175.00 lb BMI (Body Mass Index) 28.2 kg/m2 10/24/2016 4:24pm BP Systolic 100 mmHg BP Diastolic 64 mmHg Weight 186.00 lb 09/01/2016 2:44pm BP Systolic 124 mmHg BP Diastolic 68 mmHg Weight 187.00 lb 08/29/2016 12:57pm BP Systolic 108 mmHg BP Diastolic 60 mmHg Weight 186.00 lb 08/18/2016 4:10pm BP Systolic 102 mmHg BP Diastolic 60 mmHg Weight 188.00 lb 07/21/2016 9:12am BP Systolic 108 mmHg BP Diastolic 60 mmHg Body Temperature 98.3 F Weight 187.00 lb w/shoes 06/25/2016 10:34am BP Systolic 114 mmHg BP Diastolic 60 mmHg Weight 187.00 lb w/boots 06/14/2016 9:07am BP Systolic 118 mmHg BP Diastolic 78 mmHg Height 66.75 inches 5'6.75" Weight 186.00 lb BMI (Body Mass Index) 29.3 kg/m2 05/23/2016 4:13pm BP Systolic 100 mmHg BP Diastolic 62 mmHg Weight 189.00 lb w/boots 04/28/2016 2:30pm BP Systolic 110 mmHg BP Diastolic 60 mmHg Weight 185.00 lb with boots 02/22/2016 2:48pm BP Systolic 104 mmHg BP Diastolic 68 mmHg Weight 189.00 lb w/flip flops 01/15/2016 4:05pm BP Systolic 104 mmHg k BP Diastolic 64 mmHg k Heart Rate 70 /min Respiratory Rate 16 /min Height 66 inches 5'6" Weight 194.00 lb BMI (Body Mass Index) 31.3 kg/m2 11/05/2015 10:07am BP Systolic 114 mmHg BP Diastolic 70 mmHg 10/22/2015 12:08pm BP Systolic 108 mmHg BP Diastolic 56 mmHg Weight 187.00 lb w/boots 09/30/2015 5:08pm BP Systolic 102 mmHg BP Diastolic 58 mmHg Body Temperature 98.6 F 09/26/2015 11:10am BP Systolic 104 mmHg BP Diastolic 78 mmHg 09/23/2015 4:49pm BP Systolic 106 mmHg BP Diastolic 60 mmHg Heart Rate 60 /min reg Respiratory Rate 12 /min not laboured Weight 183.00 lb w/shoes 08/26/2015 3:29pm BP Systolic 112 mmHg BP Diastolic 70 mmHg Weight 184.00 lb w/shoes 08/07/2015 11:16am BP Systolic 110 mmHg BP Diastolic 62 mmHg Height 67 inches 5'7" with sneakers Weight 178.00 lb with sneakers BMI (Body Mass Index) 27.9 kg/m2 06/13/2015 10:47am BP Systolic 104 mmHg BP Diastolic 70 mmHg Heart Rate 58 /min reg Respiratory Rate 12 /min not laboured; occasional cough Body Temperature 98.3 F 05/27/2015 10:44am BP Systolic 110 mmHg BP Diastolic 62 mmHg Weight 176.00 lb with boots 05/04/2015 12:00pm BP Systolic 108 mmHg BP Diastolic 57 mmHg Heart Rate 55 /min Weight 179.00 lb 02/16/2015 11:33am BP Systolic 110 mmHg BP Diastolic 60 mmHg Weight 175.00 lb w/shoes 02/02/2015 12:47pm BP Systolic 115 mmHg BP Diastolic 62 mmHg Height 65.75 inches 5'5.75" Weight 171.00 lb BMI (Body Mass Index) 27.8 kg/m2 12/30/2014 11:25am BP Systolic 107 mmHg BP Diastolic 58 mmHg Heart Rate 61 /min Weight 177.00 lb w/shoes 10/30/2014 8:46am BP Systolic 108 mmHg BP Diastolic 49 mmHg Heart Rate 70 /min Weight 179.00 lb 09/25/2014 8:49am BP Systolic 121 mmHg BP Diastolic 47 mmHg Heart Rate 73 /min Weight 182.00 lb 09/01/2014 5:14pm BP Systolic 114 mmHg BP Diastolic 60 mmHg 08/25/2014 10:35am BP Systolic 112 mmHg BP Diastolic 50 mmHg Heart Rate 63 /min Weight 177.00 lb 08/08/2014 1:28pm BP Systolic 102 mmHg BP Diastolic 63 mmHg Heart Rate 77 /min O2 % BldC Oximetry 98 % on ra Body Temperature 97.8 F 07/28/2014 2:01pm BP Systolic 110 mmHg BP Diastolic 68 mmHg Body Temperature 98.3 F 07/25/2014 2:39pm BP Systolic 124 mmHg BP Diastolic 76 mmHg Height 65.5 inches 5'5.50" Weight 181.50 lb BMI (Body Mass Index) 29.7 kg/m2 04/24/2014 9:17am BP Systolic 96 mmHg BP Diastolic 60 mmHg Body Temperature 98.1 F 04/18/2014 9:48am BP Systolic 120 mmHg BP Diastolic 70 mmHg Weight 170.00 lb shoes on 01/23/2014 10:37am BP Systolic 104 mmHg BP Diastolic 64 mmHg 01/01/2014 12:51pm BP Systolic 108 mmHg BP Diastolic 64 mmHg Height 66 inches 5'6" Weight 171.00 lb BMI (Body Mass Index) 27.6 kg/m2 07/29/2013 2:29pm BP Systolic 98 mmHg BP Diastolic 58 mmHg Weight 168.00 lb 07/12/2013 11:06am BP Systolic 96 mmHg BP Diastolic 66 mmHg Weight 167.00 lb 05/31/2013 4:17pm BP Systolic 100 mmHg BP Diastolic 62 mmHg Weight 167.00 lb shoes on 03/22/2013 11:35am BP Systolic 108 mmHg BP Diastolic 60 mmHg Height 66.75 inches 5'6.75" shoes on Weight 166.00 lb shoes on BMI (Body Mass Index) 26.2 kg/m2 03/11/2013 1:41pm BP Systolic 110 mmHg BP Diastolic 60 mmHg Weight 165.00 lb 2012 1:13pm BP Systolic 100 mmHg BP Diastolic 70 mmHg Height 66.25 inches 5'6.25" Weight 164.00 lb BMI (Body Mass Index) 26.3 kg/m2 01/19/2012 9:52am BP Systolic 95 mmHg BP Diastolic 53 mmHg Heart Rate 75 /min Body Temperature 98.3 F Weight 165.00 lb Last Menstrual Period 0 01/04/2012 8:39am BP Systolic 102 mmHg BP Diastolic 70 mmHg 12/21/2011 10:01am BP Systolic 106 mmHg BP Diastolic 60 mmHg Heart Rate 76 /min reg Respiratory Rate 12 /min not laboured Height 65.75 inches 5'5.75" Weight 163.00 lb BMI (Body Mass Index) 26.5 kg/m2 Last Menstrual Period [id number] Results Test Date Facility Test Result H/L Range Note Laboratory test 11/11/2017 In House Culture Throat negative finding Rapid Screen Culture Throat negative Comp Metabolic Panel 10/18/2017 [facility] Sodium 137 mmol/L Low 139- 145 [phone] Potassium 4.3 mmol/L N 3.5-5.0 Chloride 104 mmol/L N 101-111 Co2 Carbon Dioxide 25 mmol/L N 22-32 Anion Gap 8 mmol/L N 2-11 Glucose 87 mg/dL N 70-100 Blood Urea Nitrogen 15 mg/dL N 6-24 Creatinine 0.81 mg/dL N 0.51-0.95 BUN/Creatinine Ratio 18.5 N 8-20 Calcium 8.9 mg/dL N 8.6-10.3 Total Protein 6.8 g/dL N 6.4-8.9 Albumin 4.1 g/dL N 3.2-5.2 Globulin 2.7 g/dL N 2-4 Albumin/Globulin Ratio 1.5 N 1-3 Total Bilirubin 0.60 mg/dL N 0.2-1.0 Alkaline Phosphatase 71 U/L N 34-104 Alt 14 U/L N 7-52 Ast 13 U/L N 13-39 Egfr Non- 78.7 >60 Egfr 101.2 >60 1 Laboratory test 10/18/2017 [facility] C Reactive 12.04 mg/L High < 5.00 2 finding [phone] Protein CBC Auto Diff 10/18/2017 [facility] White Blood 6.1 10^3/uL N 3.5- 10.8 [phone] Count Red Blood Count 3.84 10^6/uL Low 4.0-5.4 Hemoglobin 12.7 g/dL N 12.0-16.0 Hematocrit 36 % N 35-47 Mean Corpuscular Volume 95 fL N 80-97 Mean Corpuscular Hemoglobin 33 pg High 27-31 Mean Corpuscular HGB Conc 35 g/dL N 31-36 Red Cell Distribution Width 13 % N 10.5-15 Platelet Count 236 10^3/uL N 150-450 Mean Platelet Volume 9.9 um3 N 7.4-10.4 Abs Neutrophils 4.1 10^3/uL N 1.5-7.7 Abs Lymphocytes 1.5 10^3/uL N 1.0-4.8 Abs Monocytes 0.3 10^3/uL N 0-0.8 Abs Eosinophils 0.2 10^3/uL N 0-0.6 Abs Basophils 0.1 10^3/uL N 0-0.2 Abs Nucleated RBC 0 10^3/uL Granulocyte % 66.5 % N 38-83 Lymphocyte % 24.9 % Low 25-47 Monocyte % 5.1 % N 0-7 Eosinophil % 2.7 % N 0-6 Basophil % 0.8 % N 0-2 Nucleated Red Blood Cells % 0 Laboratory test 10/18/2017 [facility] Erythrocyte Sed 22 mm/Hr High 0 -14 3 finding [phone] Rate Lyme Western 09/19/2017 [facility] Lyme Disease IgG Negative Negative Blot [phone] Ab WB Lyme Disease IgG Bands Present No bands detecte <SEE NOTE> kDa 4 Lyme Disease IgM Ab WB Negative Negative Lyme Disease IgM Bands Present No bands detecte <SEE NOTE> kDa 5 Lyme Disease Interpretation See Comment 6 Laboratory test 09/19/2017 [facility] TSH (Thyroid 2.52 mcIU/mL N 0.34-5.60 finding [phone] Stim Horm) Tick-Borne Panel 09/19/2017 [facility] Babesia microti Negative Negative PCR Blood [phone] PCR Babesia ducani Negative Negative Babesia divergens/Mo-1 Negative Negative 7 Anaplasma phagocytophilum Negative Negative Ehrlichia chaffeensis Negative Negative Ehrlichia ewingii/canis Negative Negative Ehrlichia muris-like Negative Negative 8 B. miyamotoi PCR, B Negative Negative 9 CBC Auto Diff 09/19/2017 [facility] White Blood Count 6.8 10^3/uL N 3.5-10.8 [phone] Red Blood Count 4.13 10^6/uL N 4.0-5.4 Hemoglobin 13.3 g/dL N 12.0-16.0 Hematocrit 38 % N 35-47 Mean Corpuscular Volume 93 fL N 80-97 Mean Corpuscular Hemoglobin 32 pg High 27-31 Mean Corpuscular HGB Conc 35 g/dL N 31-36 Red Cell Distribution Width 13 % N 10.5-15 Platelet Count 246 10^3/uL N 150-450 Mean Platelet Volume 10.1 um3 N 7.4-10.4 Abs Neutrophils 4.9 10^3/uL N 1.5-7.7 Abs Lymphocytes 1.4 10^3/uL N 1.0-4.8 Abs Monocytes 0.5 10^3/uL N 0-0.8 Abs Eosinophils 0.1 10^3/uL N 0-0.6 Abs Basophils 0 10^3/uL N 0-0.2 Abs Nucleated RBC 0 10^3/uL Granulocyte % 71.8 % N 38-83 Lymphocyte % 19.9 % Low 25-47 Monocyte % 6.7 % N 0-7 Eosinophil % 1.0 % N 0-6 Basophil % 0.6 % N 0-2 Nucleated Red Blood Cells % 0.2 Laboratory test 09/19/2017 [facility] Erythrocyte Sed 25 mm/Hr High 0 -14 finding [phone] Rate C Reactive Protein 12.45 mg/L High < 5.00 10 Arthritis Panel 09/19/2017 [facility] Uric Acid 3.7 mg/dL N 2.3-6.6 [phone] Rheumatoid Factor < 10 IU/mL N <15 Anti-Nuclear Antibody 1.1 U High 11 Cyclic Citrullinated Peptide <15.6 U 12 Interpretation See Comment 13 Laboratory test 07/08/2017 [facility] C Reactive 1.38 mg/L N < 5.00 14 finding [phone] Protein Erythrocyte Sed Rate 14 mm/Hr N 0-14 Kristyn Igg AB Reflex 07/08/2017 [facility] SS-A/Ro Antibody <0.2 U 15 [phone] SS-B/La Antibody <0.2 U 16 Sm (Romeo) IgG Antibody <0.2 U 17 U1-nRNP Antibody 0.3 U 18 Scl-70 (Scleroderma) Antibody <0.2 U 19 Roma-1 Antibody <0.2 U 20 Laboratory test 07/08/2017 [facility] Nuclear AB <1:80 (Negative) 21 finding [phone] (Diane) By Ifa Igg Lyme Western 06/14/2017 [facility] Lyme Disease Negative Negative Blot [phone] IgG Ab WB Lyme Disease IgG Bands Present No bands detecte <SEE NOTE> kDa 22 Lyme Disease IgM Ab WB Negative Negative Lyme Disease IgM Bands Present No bands detecte <SEE NOTE> kDa 23 Lyme Disease Interpretation See Comment 24 Tick-Borne Panel PCR 06/14/2017 [facility] Babesia microti Negative Negative Blood [phone] PCR Babesia ducani Negative Negative Babesia divergens/Mo-1 Negative Negative 25 Anaplasma phagocytophilum Negative Negative Ehrlichia chaffeensis Negative Negative Ehrlichia ewingii/canis Negative Negative Ehrlichia muris-like Negative Negative 26 B. miyamotoi PCR, B Negative Negative 27 CBC Auto Diff 06/14/2017 [facility] White Blood Count 6.7 10^3/uL N 3.5-10.8 [phone] Red Blood Count 4.09 10^6/uL N 4.0-5.4 Hemoglobin 13.1 g/dL N 12.0-16.0 Hematocrit 38 % N 35-47 Mean Corpuscular Volume 93 fL N 80-97 Mean Corpuscular Hemoglobin 32 pg High 27-31 Mean Corpuscular HGB Conc 35 g/dL N 31-36 Red Cell Distribution Width 13 % N 10.5-15 Platelet Count 250 10^3/uL N 150-450 Mean Platelet Volume 10 um3 N 7.4-10.4 Abs Neutrophils 5.0 10^3/uL N 1.5-7.7 Abs Lymphocytes 1.3 10^3/uL N 1.0-4.8 Abs Monocytes 0.3 10^3/uL N 0-0.8 Abs Eosinophils 0.1 10^3/uL N 0-0.6 Abs Basophils 0 10^3/uL N 0-0.2 Abs Nucleated RBC 0 10^3/uL Granulocyte % 73.9 % N 38-83 Lymphocyte % 19.9 % Low 25-47 Monocyte % 3.9 % N 1-9 Eosinophil % 1.7 % N 0-6 Basophil % 0.6 % N 0-2 Nucleated Red Blood Cells % 0 Laboratory test 06/14/2017 [facility] Erythrocyte Sed 22 mm/Hr High 0 -14 finding [phone] Rate C Reactive Protein 8.90 mg/L High < 5.00 28 Uric Acid 3.8 mg/dL N 2.3-6.6 Arthritis Panel 06/14/2017 [facility] Rheumatoid Factor <15 IU/mL < 15 29 [phone] Anti-Nuclear Antibody 1.4 U High 30 Cyclic Citrullinated Peptide <15.6 U 31 Interpretation See Comment 32 Laboratory test 11/17/2016 [facility] (HCG) Negative N Negative 33 finding [phone] Urine Urinalysis Profile 11/14/2016 [facility] Urine Color Straw N [phone] Urine Appearance Clear N Urine Specific [place] 1.006 Low 1.010-1.030 Urine pH 5.0 N 5-9 Urine Urobilinogen Negative N Negative Urine Ketones Negative N Negative Urine Protein Negative N Negative Urine Leukocytes Negative N Negative Urine Blood 1+ Abnormal Negative Urine Nitrite Negative N Negative Urine Bilirubin Negative N Negative Urine Glucose Negative N Negative Urine White Blood Cell Absent N Absent Urine Red Blood Cell Trace(0-2/hpf) N Absent Urine Bacteria Absent N Absent Urine Squamous Epithelial Cell Present Abnormal Absent CBC Auto Diff 11/14/2016 [facility] White Blood Count 6.8 10^3/uL N 3.5-10.8 [phone] Red Blood Count 4.19 10^6/uL N 4.0-5.4 Hemoglobin 13.7 g/dL N 12.0-16.0 Hematocrit 39 % N 35-47 Mean Corpuscular Volume 94 fL N 80-97 Mean Corpuscular Hemoglobin 33 pg High 27-31 Mean Corpuscular HGB Conc 35 g/dL N 31-36 Red Cell Distribution Width 13 % N 10.5-15 Platelet Count 227 10^3/uL N 150-450 Mean Platelet Volume 10 um3 N 7.4-10.4 Abs Neutrophils 5.3 10^3/uL N 1.5-7.7 Abs Lymphocytes 1.2 10^3/uL N 1.0-4.8 Abs Monocytes 0.2 10^3/uL N 0-0.8 Abs Eosinophils 0 10^3/uL N 0-0.6 Abs Basophils 0 10^3/uL N 0-0.2 Abs Nucleated RBC 0.01 10^3/uL N Granulocyte % 77.4 % N 38-83 Lymphocyte % 17.8 % Low 25-47 Monocyte % 3.7 % N 1-9 Eosinophil % 0.5 % N 0-6 Basophil % 0.6 % N 0-2 Nucleated Red Blood Cells % 0.1 N Laboratory test 11/14/2016 [facility] D Dimer < 200 ng/mL N Less Than 34 finding [phone] Quantitative 230 Troponin-I (TnI) 0.00 ng/mL N <0.04 HCG < 0.60 mIU/mL N 35 Comp Metabolic Panel 11/14/2016 [facility] Sodium 134 mmol/L N 133- 145 [phone] Potassium 3.7 mmol/L N 3.5-5.0 Chloride 103 mmol/L N 101-111 Co2 Carbon Dioxide 21 mmol/L Low 22-32 Anion Gap 10 mmol/L N 2-11 Glucose 85 mg/dL N 70-100 Blood Urea Nitrogen 11 mg/dL N 6-24 Creatinine 0.79 mg/dL N 0.51-0.95 BUN/Creatinine Ratio 13.9 N 8-20 Calcium 9.3 mg/dL N 8.6-10.3 Total Protein 7.5 g/dL N 6.4-8.9 Albumin 4.2 g/dL N 3.2-5.2 Globulin 3.3 g/dL N 2-4 Albumin/Globulin Ratio 1.3 N 1-3 Total Bilirubin 0.80 mg/dL N 0.2-1.0 Alkaline Phosphatase 70 U/L N 34-104 Alt 13 U/L N 7-52 Ast 17 U/L N 13-39 Egfr Non- 81.4 N >60 Egfr 104.7 N >60 36 Laboratory test finding 11/14/2016 [facility] Lipase 18 U/L N 11.0- 82.0 [phone] CRP High Sensitivity 5.33 mg/L N 37 CBC Auto Diff 08/29/2016 [facility] White Blood Count 7.3 10^3/uL N 3.5-10.8 [phone] Red Blood Count 4.04 10^6/uL N 4.0-5.4 Hemoglobin 12.8 g/dL N 12.0-16.0 Hematocrit 37 % N 35-47 Mean Corpuscular Volume 92 fL N 80-97 Mean Corpuscular Hemoglobin 32 pg High 27-31 Mean Corpuscular HGB Conc 34 g/dL N 31-36 Red Cell Distribution Width 13 % N 10.5-15 Platelet Count 221 10^3/uL N 150-450 Mean Platelet Volume 10 um3 N 7.4-10.4 Abs Neutrophils 4.9 10^3/uL N 1.5-7.7 Abs Lymphocytes 1.8 10^3/uL N 1.0-4.8 Abs Monocytes 0.3 10^3/uL N 0-0.8 Abs Eosinophils 0.1 10^3/uL N 0-0.6 Abs Basophils 0 10^3/uL N 0-0.2 Abs Nucleated RBC 0 10^3/uL N Granulocyte % 67.7 % N 38-83 Lymphocyte % 25.5 % N 25-47 Monocyte % 4.4 % N 1-9 Eosinophil % 1.9 % N 0-6 Basophil % 0.5 % N 0-2 Nucleated Red Blood Cells % 0 N Comp Metabolic Panel 08/29/2016 [facility] Sodium 136 mmol/L N 133- 145 [phone] Potassium 3.8 mmol/L N 3.5-5.0 Chloride 105 mmol/L N 101-111 Co2 Carbon Dioxide 26 mmol/L N 22-32 Anion Gap 5 mmol/L N 2-11 Glucose 86 mg/dL N 70-100 Blood Urea Nitrogen 13 mg/dL N 6-24 Creatinine 0.71 mg/dL N 0.51-0.95 BUN/Creatinine Ratio 18.3 N 8-20 Calcium 9.3 mg/dL N 8.6-10.3 Total Protein 7.2 g/dL N 6.4-8.9 Albumin 4.2 g/dL N 3.2-5.2 Globulin 3.0 g/dL N 2-4 Albumin/Globulin Ratio 1.4 N 1-3 Total Bilirubin 0.50 mg/dL N 0.2-1.0 Alkaline Phosphatase 81 U/L N 34-104 Alt 22 U/L N 7-52 Ast 15 U/L N 13-39 Egfr Non- 92.6 N >60 Egfr 119.1 N >60 38 Laboratory test 08/29/2016 [facility] C Reactive 5.00 mg/L N < 5.00 39 finding [phone] Protein D Dimer Quantitative < 200 ng/mL N Less Than 230 40 Erythrocyte Sed Rate 18 mm/Hr High 0-14 Magnesium 2.1 mg/dL N 1.9-2.7 TSH (Thyroid Stim Horm) 2.65 mcIU/mL N 0.34-5.60 Troponin-I (TnI) 0.00 ng/mL N <0.04 41 Amylase 29 U/L N 29-103 Lipase 34 U/L N 11.0-82.0 Laboratory test finding 07/22/2016 In House Occult Blood, F I T negative Urine Micro Inhouse 07/21/2016 In House Ua WBC - 42 Ua RBC 6-8 Ua Casts - Ua Epi 2-3 Ua Other - Ua Glucose - Ua Bilirubin - Ua Ketones - Ua Specific [place] 1.005 Ua Blood 2+ Ua PH 6.0 Ua Protein - Ua Urobilinogen - Ua Nitrite - Ua Leukocytes - Laboratory test 07/21/2016 In House Test negative finding Urine CBC Auto Diff 07/21/2016 [facility] White Blood Count 7.1 10^3/uL N 3.5-10.8 [phone] Red Blood Count 4.25 10^6/uL N 4.0-5.4 Hemoglobin 13.4 g/dL N 12.0-16.0 Hematocrit 39 % N 35-47 Mean Corpuscular Volume 91 fL N 80-97 Mean Corpuscular Hemoglobin 32 pg High 27-31 Mean Corpuscular HGB Conc 35 g/dL N 31-36 Red Cell Distribution Width 13 % N 10.5-15 Platelet Count 231 10^3/uL N 150-450 Mean Platelet Volume 11 um3 High 7.4-10.4 Abs Neutrophils 5.1 10^3/uL N 1.5-7.7 Abs Lymphocytes 1.5 10^3/uL N 1.0-4.8 Abs Monocytes 0.3 10^3/uL N 0-0.8 Abs Eosinophils 0.1 10^3/uL N 0-0.6 Abs Basophils 0.1 10^3/uL N 0-0.2 Abs Nucleated RBC 0 10^3/uL N Granulocyte % 71.5 % N 38-83 Lymphocyte % 21.5 % Low 25-47 Monocyte % 4.9 % N 1-9 Eosinophil % 0.7 % N 0-6 Basophil % 1.4 % N 0-2 Nucleated Red Blood Cells % 0 N Comp Metabolic Panel 07/21/2016 [facility] Sodium 135 mmol/L N 133- 145 [phone] Potassium 3.8 mmol/L N 3.5-5.0 Chloride 102 mmol/L N 101-111 Co2 Carbon Dioxide 26 mmol/L N 22-32 Anion Gap 7 mmol/L N 2-11 Glucose 85 mg/dL N 70-100 Blood Urea Nitrogen 13 mg/dL N 6-24 Creatinine 0.69 mg/dL N 0.51-0.95 BUN/Creatinine Ratio 18.8 N 8-20 Calcium 9.6 mg/dL N 8.6-10.3 Total Protein 7.4 g/dL N 6.4-8.9 Albumin 4.5 g/dL N 3.2-5.2 Globulin 2.9 g/dL N 2-4 Albumin/Globulin Ratio 1.6 N 1-3 Total Bilirubin 0.80 mg/dL N 0.2-1.0 Alkaline Phosphatase 91 U/L N 34-104 Alt 17 U/L N 7-52 Ast 17 U/L N 13-39 Egfr Non- 95.7 N >60 Egfr 123.1 N >60 43 Laboratory test 07/21/2016 [facility] Erythrocyte Sed 16 mm/Hr High 0 -14 finding [phone] Rate Liver Function 07/21/2016 [facility] Direct Bilirubin 0.20 mg/dL High 0.03-0.18 Panel [phone] Indirect Bilirubin 0.6 mg/dL N 0.3-1.0 CBC Auto Diff 05/24/2016 [facility] White Blood Count 7.1 10^3/uL N 3.5-10.8 [phone] Red Blood Count 4.15 10^6/uL N 4.0-5.4 Hemoglobin 13.3 g/dL N 12.0-16.0 Hematocrit 39 % N 35-47 Mean Corpuscular Volume 93 fL N 80-97 Mean Corpuscular Hemoglobin 32 pg High 27-31 Mean Corpuscular HGB Conc 35 g/dL N 31-36 Red Cell Distribution Width 13 % N 10.5-15 Platelet Count 248 10^3/uL N 150-450 Mean Platelet Volume 10 um3 N 7.4-10.4 Abs Neutrophils 5.6 10^3/uL N 1.5-7.7 Abs Lymphocytes 1.2 10^3/uL N 1.0-4.8 Abs Monocytes 0.2 10^3/uL N 0-0.8 Abs Eosinophils 0 10^3/uL N 0-0.6 Abs Basophils 0 10^3/uL N 0-0.2 Abs Nucleated RBC 0 10^3/uL N Granulocyte % 78.7 % N 38-83 Lymphocyte % 16.8 % Low 25-47 Monocyte % 3.4 % N 1-9 Eosinophil % 0.6 % N 0-6 Basophil % 0.5 % N 0-2 Nucleated Red Blood Cells % 0 N Comp Metabolic Panel 05/24/2016 [facility] Sodium 138 mmol/L N 133- 145 [phone] Potassium 3.9 mmol/L N 3.5-5.0 Chloride 104 mmol/L N 101-111 Co2 Carbon Dioxide 26 mmol/L N 22-32 Anion Gap 8 mmol/L N 2-11 Glucose 86 mg/dL N 70-100 Blood Urea Nitrogen 12 mg/dL N 6-24 Creatinine 0.72 mg/dL N 0.51-0.95 BUN/Creatinine Ratio 16.7 N 8-20 Calcium 9.6 mg/dL N 8.6-10.3 Total Protein 7.2 g/dL N 6.4-8.9 Albumin 4.3 g/dL N 3.2-5.2 Globulin 2.9 g/dL N 2-4 Albumin/Globulin Ratio 1.5 N 1-3 Total Bilirubin 0.50 mg/dL N 0.2-1.0 Alkaline Phosphatase 106 U/L High 34-104 Alt 9 U/L N 7-52 Ast 11 U/L Low 13-39 Egfr Non- 91.1 N >60 Egfr 117.2 N >60 44 Laboratory test 05/24/2016 [facility] C Reactive 8.05 mg/L High < 5.00 45 finding [phone] Protein Erythrocyte Sed Rate 20 mm/Hr High 0-14 Connective Tissue 05/24/2016 [facility] Anti-Nuclear Antibody 1.4 U High 46 Panel [phone] Cyclic Citrullinated Peptide <15.6 U N 47 Interpretation See Comment N 48 Laboratory test 05/24/2016 [facility] TSH (Thyroid 1.53 mcIU/mL N 0.34-5.60 finding [phone] Stim Horm) T3 Free 3.10 pg/mL N 2.5-3.9 Free T4 (Free Thyroxine) 0.95 ng/dL N 0.61-1.12 Vitamin B12 255 pg/mL N 180-914 49 Magnesium 2.1 mg/dL N 1.9-2.7 Vitamin D Total 25(Oh) 28.6 ng/mL Low 30-50 Xray 01/15/2016 [facility] X-Ray, Toe[S], wnl Min. Of 2 Views, RT Laboratory test 10/23/2015 [facility] Insulinlike Growth 5.2 g/mL N 3.4 - 50 finding [phone] Protein 3 6.7 Growth Hormone 0.17 ng/mL N 51 Insulin-Like Growth 10/23/2015 [facility] Insulin like 135 ng/mL N 54 -258 Factor 1 [phone] Growth Factor I Igf1 Z-score 0.13 SD N 52 Laboratory test 10/23/2015 [facility] Prolactin 3.8 ng/mL N 1.0-25.0 finding [phone] CBC Auto Diff 10/01/2015 [facility] White Blood 5.1 10^3/uL N 3.5- 10.8 [phone] Count Red Blood Count 4.07 10^6/uL N 4.0-5.4 Hemoglobin 13.3 g/dL N 12.0-16.0 Hematocrit 38 % N 35-47 Mean Corpuscular Volume 94 fL N 80-97 Mean Corpuscular Hemoglobin 33 pg High 27-31 Mean Corpuscular HGB Conc 35 g/dL N 31-36 Red Cell Distribution Width 13 % N 10.5-15 Platelet Count 272 10^3/uL N 150-450 Mean Platelet Volume 10 um3 N 7.4-10.4 Abs Neutrophils 3.1 10^3/uL N 1.5-7.7 Abs Lymphocytes 1.6 10^3/uL N 1.0-4.8 Abs Monocytes 0.2 10^3/uL N 0-0.8 Abs Eosinophils 0.1 10^3/uL N 0-0.6 Abs Basophils 0 10^3/uL N 0-0.2 Abs Nucleated RBC 0 10^3/uL N Granulocyte % 61.2 % N 38-83 Lymphocyte % 31.8 % N 25-47 Monocyte % 4.7 % N 1-9 Eosinophil % 1.4 % N 0-6 Basophil % 0.9 % N 0-2 Nucleated Red Blood Cells % 0 N Comp Metabolic Panel 10/01/2015 [facility] Sodium 136 mmol/L N 133- 145 [phone] Potassium 4.4 mmol/L N 3.5-5.0 Chloride 104 mmol/L N 101-111 Co2 Carbon Dioxide 26 mmol/L N 22-32 Anion Gap 6 mmol/L N 2-11 Glucose 83 mg/dL N 70-100 Blood Urea Nitrogen 14 mg/dL N 6-24 Creatinine 0.73 mg/dL N 0.51-0.95 BUN/Creatinine Ratio 19.2 N 8-20 Calcium 9.8 mg/dL N 8.6-10.3 Total Protein 7.4 g/dL N 6.4-8.9 Albumin 4.4 g/dL N 3.2-5.2 Globulin 3.0 g/dL N 2-4 Albumin/Globulin Ratio 1.5 N 1-3 Total Bilirubin 0.50 mg/dL N 0.2-1.0 Alkaline Phosphatase 70 U/L N 34-104 Alt 21 U/L N 7-52 Ast 18 U/L N 13-39 Egfr Non- 90.2 N >60 Egfr 116.0 N >60 53 Laboratory test finding 10/01/2015 [facility] Magnesium 2.2 mg/dL N 1.9-2.7 [phone] TSH (Thyroid Stim Horm) 2.79 ?IU/mL N 0.34-5.60 T3 Free 3.30 pg/mL N 2.5-3.9 Free T4 (Free Thyroxine) 0.90 ng/dL N 0.61-1.12 Vitamin B12 333 pg/mL N 180-914 54 HCG < 0.60 mIU/mL N 55 Laboratory test 09/23/2015 In House Test negative finding Urine Laboratory test 08/07/2015 [facility] TSH (Thyroid Stim 2.57 ?IU/mL N 0.34-5.6 finding [phone] Horm) 0 T3 Free 4.10 pg/mL High 2.5-3.9 Free T4 (Free Thyroxine) 0.90 ng/dL N 0.61-1.12 Vitamin D Total 25(Oh) 30.8 ng/mL N 30-50 Magnesium 2.1 mg/dL N 1.9-2.7 Laboratory test finding 05/11/2015 [facility] T3 Free 3.40 pg/mL N 2.5-3.9 [phone] Free T4 (Free Thyroxine) 0.73 ng/mL N 0.61-1.12 TSH (Thyroid Stim Horm) 3.68 ?IU/mL N 0.34-5.60 Lyme Western Blot 02/02/2015 [facility] Lyme Disease IgG Negative N Negative [phone] Ab WB Lyme Disease IgG Bands Present p93, p66, p41, kDa N Lyme Disease IgM Ab WB Negative N Negative Lyme Disease IgM Bands Present No bands detecte <SEE NOTE> kDa N 56 Lyme Disease Interpretation See Comment N 57 Laboratory test 09/11/2014 [facility] TSH (Thyroid 3.96 IU/mL N 0.34- 5.60 finding [phone] Stimulating Horm) Free T3 2.70 pg/mL N 2.5-3.9 Free T4 0.79 ng/mL N 0.61-1.12 Thyroid 07/28/2014 [facility] Thyroid 379.61 IU/mL High <9 Autoantibodies [phone] Peroxidase Antibodies Thyroglobulin Antibody <1.8 IU/mL N <4.0 58 Celiac Panel 07/28/2014 [facility] Immunoglobulin A 344 mg/dL N 61 - 356 [phone] Tissue Transglutaminase IgA Ab <1.2 U/mL N 59 Celiac Interpretation See Comment N 60 Vitamin D, 25 07/28/2014 [facility] 25-Hydroxy Vitamin D2 <4.0 ng/mL N Hydroxy [phone] 25-Hydroxy Vitamin D3 19 ng/mL N 25-Hydroxy Vitamin D Total 19 ng/mL Abnormal 61 Laboratory test finding 07/28/2014 [facility] Vitamin B12 321 pg/mL N 180-914 62 [phone] Celiac Hla DQ1/DQ2 07/28/2014 [facility] Hla-Dqa1 SEE BELOW N 63 [phone] Hla-DQB1 SEE BELOW N 64 Celiac Gene Pairs Present? Equivocal N Celiac Gene Interpretation See Comment N 65 Laboratory test 07/25/2014 In House Test negative finding Urine CBC Auto Diff 07/25/2014 [facility] White Blood Count 7.9 10^3/uL N 4.8-10.8 [phone] Red Blood Count 3.97 10^6/uL Low 4.0-5.4 Hemoglobin 13.3 g/dL N 12.0-16.0 Hematocrit 38 % N 35-47 Mean Corpuscular Volume 95 fL N 80-97 Mean Corpuscular Hemoglobin 33 pg High 27-31 Mean Corpuscular HGB Conc 35 g/dL N 31-36 Red Cell Distribution Width 13 % N 10.5-15 Platelet Count 205 10^3/uL N 150-450 Mean Platelet Volume 10 um3 N 7.4-10.4 Abs Neutrophils 5.6 10^3/uL N 1.5-7.7 Abs Lymphocytes 1.8 10^3/uL N 1.0-4.8 Abs Monocytes 0.3 10^3/uL N 0-0.8 Abs Eosinophils 0.1 10^3/uL N 0-0.6 Abs Basophils 0 10^3/uL N 0-0.2 Abs Nucleated RBC 0 10^3/uL N Granulocyte % 71.2 % N 38-83 Lymphocyte % 22.9 % Low 25-47 Monocyte % 4.2 % N 1-9 Eosinophil % 1.1 % N 0-6 Basophil % 0.6 % N 0-2 Nucleated Red Blood Cells % 0 N Comp Metabolic Panel 07/25/2014 [facility] Sodium 136 mmol/L N 133- 145 [phone] Potassium 3.8 mmol/L N 3.5-5.0 Chloride 104 mmol/L N 101-111 Co2 Carbon Dioxide 25 mmol/L N 22-32 Anion Gap 7 mmol/L N 2-11 Glucose 86 mg/dL N 70-100 Blood Urea Nitrogen 16 mg/dL N 6-24 Creatinine 0.83 mg/dL N 0.51-0.95 BUN/Creatinine Ratio 19.3 N 8-20 Calcium 9.6 mg/dL N 8.6-10.3 Total Protein 7.2 g/dL N 6.4-8.9 Albumin 4.5 g/dL N 3.2-5.2 Globulin 2.7 g/dL N 2-4 Albumin/Globulin Ratio 1.7 N 1-3 Total Bilirubin 0.50 mg/dL N 0.2-1.0 Alkaline Phosphatase 69 U/L N 34-104 Alt 11 U/L N 7-52 Ast 16 U/L N 13-39 Egfr Non- 78.2 N >60 Egfr 100.6 N >60 66 Laboratory test finding 07/25/2014 [facility] Ferritin 73.3 ng/mL N 11-307 [phone] Iron & Iron Binding Capacity 07/25/2014 [facility] Iron 81 g/dL N 50-212 [phone] Unsaturated Iron Binding 216 g/dL N Total Iron Binding Capacity 297 g/dL N 250-450 % Iron Saturation 27 % N 15-55 Laboratory test 07/25/2014 [facility] TSH (Thyroid 4.10 IU/mL N 0.34- 5.60 finding [phone] Stimulating Horm) Laboratory test 11/04/2013 [facility] TSH (Thyroid 4.39 IU/mL 0.34- 5.60 finding [phone] Stimulating Horm) Free T3 2.90 pg/mL 2.5-3.9 Free T4 0.68 ng/mL 0.61-1.12 Comp Metabolic Panel 07/29/2013 [facility] Sodium 135 mmol/L 133- 145 [phone] Potassium 4.2 mmol/L 3.7-5.6 Chloride 103 mmol/L 101-111 Co2 Carbon Dioxide 26 mmol/L 22-32 Anion Gap 6 mmol/L 2-11 Glucose 89 mg/dL 70-100 Blood Urea Nitrogen 17 mg/dL 6-24 Creatinine 0.76 mg/dL 0.51-0.95 BUN/Creatinine Ratio 22.4 High 8-20 Calcium 9.5 mg/dL 8.6-10.3 Total Protein 7.1 g/dL 6.4-8.9 Albumin 4.4 g/dL 3.2-5.2 Globulin 2.7 g/dL 2-4 Albumin/Globulin Ratio 1.6 1-3 Total Bilirubin 0.50 mg/dL 0.2-1.0 Alkaline Phosphatase 54 U/L 34-104 Alt 10 U/L 7-52 Ast 16 U/L 13-39 Egfr Non- 87.1 >60 Egfr 112.0 >60 67 CBC Auto Diff 07/29/2013 [facility] White Blood Count 8.2 10^3/uL 4.8-10.8 [phone] Red Blood Count 3.88 10^6/uL Low 4.0-5.4 Hemoglobin 13.4 g/dL 12.0-16.0 Hematocrit 36 % 35-47 Mean Corpuscular Volume 93 fL 80-97 Mean Corpuscular Hemoglobin 34 pg High 27-31 Mean Corpuscular HGB Conc 37 g/dL High 31-36 Red Cell Distribution Width 12 % 10.5-15 Platelet Count 216 10^3/uL 150-450 Mean Platelet Volume 11 um3 High 7.4-10.4 Abs Neutrophils 5.9 10^3/uL 1.5-7.7 Abs Lymphocytes 1.8 10^3/uL 1.0-4.8 Abs Monocytes 0.4 10^3/uL 0-0.8 Abs Eosinophils 0.1 10^3/uL 0-0.6 Abs Basophils 0.1 10^3/uL 0-0.2 Abs Nucleated RBC 0 10^3/uL Granulocyte % 72.0 % 38-83 Lymphocyte % 21.6 % Low 25-47 Monocyte % 4.5 % 1-9 Eosinophil % 1.1 % 0-6 Basophil % 0.8 % 0-2 Nucleated Red Blood Cells % 0 Laboratory test finding 07/29/2013 [facility] Creatine Kinase 78 U/L 95-679 [phone] TSH (Thyroid Stimulating Horm) 9.06 IU/mL High 0.34-5.60 Free T3 2.10 pg/mL Low 2.5-3.9 T4 7.14 g/dL 6.09-12.23 Laboratory test finding 01/19/2012 In House Culture Throat Rapid Screen neg Culture Throat neg 1 Because ethnic data is not always readily available, this report includes an eGFR for both -Americans and non- Americans. The National Kidney Disease Education Program (NKDEP) does not endorse the use of the MDRD equation for patients that are not between the ages of 18 and 70, are , have extremes of body size, muscle mass, or nutritional status, or are non- or non-. According to the National Kidney Foundation, irrespective of diagnosis, the stage of the disease is based on the level of kidney function: Stage Description GFR(mL/min/1.73 m(2)) 1 Kidney damage with normal or decreased GFR 90 2 Kidney damage with mild decrease in GFR 60-89 3 Moderate decrease in GFR 30-59 4 Severe decrease in GFR 15-29 5 Kidney failure <15 (or dialysis) 2 Acute inflammation: >10.00 3 Please check 2 days before follow up 4 No bands detected 5 No bands detected 6 Specific serologic response to B. burgdorferi infection is not detected, but cannot rule out early infection during which low or undetectable antibody levels to B. burgdorferi may be present. If clinically indicated, a new serum specimen should be submitted in 7-14 days. ADDITIONAL INFORMATION CDC criteria require >=5 bands for IgG or >=2 bands for IgM for the Immunoblot to be considered positive. Bands (e.g.,p41) may be detected in patients without Lyme disease, and patterns not meeting the CDC criteria should be interpreted with caution. Immunoblot should be ordered only on specimens that are positive or equivocal by a FDA-licensed Lyme disease antibody screening test (e.g., EIA). Test Performed by: [facility] [address] [place] [address] 7 ADDITIONAL INFORMATION This test was developed and its performance characteristics determined by [facility] in a manner consistent with CLIA requirements. This test has not been cleared or approved by the U.S. Food and Drug Administration. 8 ADDITIONAL INFORMATION This test was developed and its performance characteristics determined by [facility] in a manner consistent with CLIA requirements. This test has not been cleared or approved by the U.S. Food and Drug Administration. 9 ADDITIONAL INFORMATION This test was developed and its performance characteristics determined by [facility] in a manner consistent with CLIA requirements. This test has not been cleared or approved by the U.S. Food and Drug Administration. Test Performed by: [facility] - [address] [address] 10 Acute inflammation: >10.00 11 Interpretation: Weak Positive (1.1-2.9) REFERENCE VALUE <=1.0 (Negative) 12 REFERENCE VALUE <20.0 (Negative) 13 Tests for antibodies to dsDNA and KRISTYN antigens are not performed automatically unless the DIANE result is > or= 3.0 U. Studies performed at [facility] indicate that positive DIANE results <3.0 U are rarely accompanied by positive second order tests. Test Performed by: [facility] - [address] [address] 14 Acute inflammation: >10.00 15 REFERENCE VALUE <1.0 (Negative) 16 REFERENCE VALUE <1.0 (Negative) 17 REFERENCE VALUE <1.0 (Negative) 18 REFERENCE VALUE <1.0 (Negative) 19 REFERENCE VALUE <1.0 (Negative) 20 REFERENCE VALUE <1.0 (Negative) Test Performed by: [place] [id number] 21 <1:80 (Negative) REFERENCE VALUE <1:80 (Negative) Test Performed by: [address] [id number] 22 No bands detected 23 No bands detected 24 Specific serologic response to B. burgdorferi infection is not detected, but cannot rule out early infection during which low or undetectable antibody levels to B. burgdorferi may be present. If clinically indicated, a new serum specimen should be submitted in 7-14 days. ADDITIONAL INFORMATION CDC criteria require >=5 bands for IgG or >=2 bands for IgM for the Immunoblot to be considered positive. Bands (e.g.,p41) may be detected in patients without Lyme disease, and patterns not meeting the CDC criteria should be interpreted with caution. Immunoblot should be ordered only on specimens that are positive or equivocal by a FDA-licensed Lyme disease antibody screening test (e.g., EIA). Test Performed by: [facility] - [facility] [address] [place] [address] 25 ADDITIONAL INFORMATION This test was developed and its performance characteristics determined by [facility] in a manner consistent with CLIA requirements. This test has not been cleared or approved by the U.S. Food and Drug Administration. 26 ADDITIONAL INFORMATION This test was developed and its performance characteristics determined by [facility] in a manner consistent with CLIA requirements. This test has not been cleared or approved by the U.S. Food and Drug Administration. 27 ADDITIONAL INFORMATION This test was developed and its performance characteristics determined by [facility] in a manner consistent with CLIA requirements. This test has not been cleared or approved by the U.S. Food and Drug Administration. Test Performed by: [facility] - [address] [address] 28 Acute inflammation: >10.00 29 Test Performed by: [facility] - [address] [address] 30 Interpretation: Weak Positive (1.1-2.9) REFERENCE VALUE <=1.0 (Negative) 31 REFERENCE VALUE <20.0 (Negative) 32 Tests for antibodies to dsDNA and KRISTYN antigens are not performed automatically unless the DIANE result is > or= 3.0 U. Studies performed at [facility] indicate that positive DIANE results <3.0 U are rarely accompanied by positive second order tests. Test Performed by: [facility] - [address] [address] 33 If is still suspected, please repeat test after 48 to 72 hours. This test detects intact HCG only and is indicated for the early detection of . 34 Please note: The following may produce a false positive D Dimer test: - Rheumatoid factor greater than 60 IU/ml - Plasma hemoglobin greater than 0.05 gm/dl - Bilirubin greater than 50 mg/dl - Lipids greater than 1000 mg/dl - FDP greater than 20 ug/ml 35 <5.0 Negative 5.0 - 25.0 Indeterminate (Repeat testing recommended after 72 hours) >25.0 Positive Perimenopausal women can display HCG levels of up to 20 mIU/mL 36 Because ethnic data is not always readily available, this report includes an eGFR for both -Americans and non- Americans. The National Kidney Disease Education Program (NKDEP) does not endorse the use of the MDRD equation for patients that are not between the ages of 18 and 70, are , have extremes of body size, muscle mass, or nutritional status, or are non- or non-. According to the National Kidney Foundation, irrespective of diagnosis, the stage of the disease is based on the level of kidney function: Stage Description GFR(mL/min/1.73 m(2)) 1 Kidney damage with normal or decreased GFR 90 2 Kidney damage with mild decrease in GFR 60-89 3 Moderate decrease in GFR 30-59 4 Severe decrease in GFR 15-29 5 Kidney failure <15 (or dialysis) 37 Low risk: <1.00 Average risk: 1.00-3.00 High risk: >3.00 38 Because ethnic data is not always readily available, this report includes an eGFR for both -Americans and non- Americans. The National Kidney Disease Education Program (NKDEP) does not endorse the use of the MDRD equation for patients that are not between the ages of 18 and 70, are , have extremes of body size, muscle mass, or nutritional status, or are non- or non-. According to the National Kidney Foundation, irrespective of diagnosis, the stage of the disease is based on the level of kidney function: Stage Description GFR(mL/min/1.73 m(2)) 1 Kidney damage with normal or decreased GFR 90 2 Kidney damage with mild decrease in GFR 60-89 3 Moderate decrease in GFR 30-59 4 Severe decrease in GFR 15-29 5 Kidney failure <15 (or dialysis) 39 Acute inflammation: >10.00 40 Please note: The following may produce a false positive D Dimer test: - Rheumatoid factor greater than 60 IU/ml - Plasma hemoglobin greater than 0.05 gm/dl - Bilirubin greater than 50 mg/dl - Lipids greater than 1000 mg/dl - FDP greater than 20 ug/ml 41 99th percentile=0.04 ng/mL Troponin results at [facility] and [facility] are not interchangeable. 42 void, clear, yellow 43 Because ethnic data is not always readily available, this report includes an eGFR for both -Americans and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
--- NOTE | 2018-11-07 17:37 | UC ---
Ear Complaint HPI - HPI Summary HPI Summary: 38-year-old female presents with complaints of left ear pain for the past 2 days. She also reports some intermittent vertigo with change in position. Denies fever, chills, nasal congestion, runny nose, sore throat, cough, nausea, or vomiting. - History of Current Complaint Chief Complaint: UCEar Stated Complaint: EAR PAIN Time Seen by Provider: 11/07/18 16:47 Hx Obtained From: Patient Hx Last Menstrual Period: end of September 2017 Pain Intensity: 9 - Allergies/Home Medications Allergies/Adverse Reactions: Allergies Allergy/AdvReac Type Severity Reaction Status Date / Time Sulfa (Sulfonamide Allergy Severe Hives Verified 11/07/18 16:31 Antibiotics) Home Medications: Home Medications Cetirizine HCl [Zyrtec] 10 mg PO 11/07/18 [History] PMH/Surg Hx/FS Hx/Imm Hx Previously Healthy: Yes Endocrine History: Hypothyroidism - Surgical History Surgical History: Yes Surgery Procedure, Year, and Place: THYROID DUCT CYST REMOVED. ENDOSCOPY - Family History Known Family History: Positive: Cardiac Disease - Social History Occupation: Employed Full-time Lives: With Family Alcohol Use: Occasionally Substance Use Type: None Smoking Status (MU): Never Smoked Tobacco Review of Systems All Other Systems Reviewed And Are Negative: Yes Constitutional: Negative: Fever, Chills Eyes: Negative: Drainage, Eye Redness ENT: Positive: Ear Ache. Negative: Sore Throat, Nasal Discharge, Sinus Congestion, Sinus Pain/Tenderness Respiratory: Negative: Shortness Of Breath, Cough Cardiovascular: Positive: Negative Gastrointestinal: Positive: Negative Genitourinary: Positive: Negative Musculoskeletal: Positive: Negative Neurological: Positive: Negative Physical Exam - Summary Physical Exam Summary: GENERAL APPEARANCE: Well developed, well nourished, alert and cooperative, and appears to be in no acute distress. EYES: Conjunctiva clear. No drainage. EARS: External auditory canals membranes clear, hearing grossly intact. Right TM opaque with good cone of light. Left TM dull with air bubbles noted. NOSE: No nasal discharge. THROAT: Pharynx normal. No tonsilar inflammation, swelling, exudate, or lesions. Uvula midline. Oral cavity normal. Teeth and gingiva in good general condition. NECK: Neck supple, non-tender without lymphadenopathy. CARDIAC: Normal S1 and S2. No S3, S4 or murmurs. Rhythm is regular. There is no peripheral edema, cyanosis or pallor. Extremities are warm and well perfused. Capillary refill is less than 2 seconds. Peripheral pulses intact. LUNGS: Clear to auscultation without rales, rhonchi, wheezing or diminished breath sounds. ABDOMEN: Positive bowel sounds. Soft, nondistended, nontender. No guarding or rebound. No masses or hepatosplenomegally. MUSKULOSKELETAL: ROM intact to all extremities. No joint erythema or tenderness. Normal muscular development. Normal gait. SKIN: Skin normal color, texture and turgor with no lesions or eruptions. Triage Information Reviewed: Yes Vital Signs: Initial Vital Signs Temp 98.8 F 11/07/18 16:28 Pulse 90 11/07/18 16:28 Resp 18 11/07/18 16:28 BP 104/63 11/07/18 16:28 Pulse Ox 100 11/07/18 16:28 Vital Signs Reviewed: Yes Ear Complaint Course/Dx - Course Course Of Treatment: 38-year-old female presents with complaints of left ear pain for the past 2 days. She also reports some intermittent vertigo with change in position. Denies fever, chills, nasal congestion, runny nose, sore throat, cough, nausea, or vomiting. Afebrile. Vital signs stable. Patient had a dull left TM with some air bubbles noted and otherwise unremarkable exam. We'll treat her for an acute serous otitis of the left ear with fluticasone nasal spray 2 sprays each nostril once daily. She is to follow-up with her primary care provider in 7 days if symptoms do not improve. Anticipatory guidance and warning symptoms were reviewed with the patient. Verbalizes understanding and agrees with plan of care. - Differential Dx/Diagnosis Differential Diagnosis/HQI/PQRI: Cerumen Impaction, Otitis Externa, Otitis Media Provider Diagnosis: Acute serous otitis media of left ear Discharge - Sign-Out/Discharge Documenting (check all that apply): Patient Departure All imaging exams completed and their final reports reviewed: No Studies - Discharge Plan Condition: Stable Disposition: HOME Prescriptions: Fluticasone NASAL SPRAY 50MCG* [Flonase NASAL SPRAY 50MCG*] 2 spray BOTH NARES DAILY #1 btl Patient Education Materials: Serous Otitis Media (ED) Referrals: Saeid Swartz MD [Primary Care Provider] - 7 Days (If no improvement in symptoms.) Additional Instructions: There was no evidence of an ear infection however there was some fluid behind the eardrum suggesting a condition called serous otitis. Start using fluticasone nasal spray 2 sprays each nostril once daily. Use hetq-brf-rpuston acetaminophen (Tylenol) or ibuprofen (Motrin, Advil) according to directions as needed for pain. Follow-up with your primary care provider in 7 days if symptoms are not improving. Seek immediate medical attention if you develop a fever greater than 100.5 F, have severe pain despite taking pain medication, have drainage or bleeding from the ear, or any worsening of symptoms. - Billing Disposition and Condition Condition: STABLE Disposition: Home - Attestation Statements Provider Attestation: Per institutional requirements, I have reviewed the chart, however, I was not consulted specifically or made aware of this patient by the midlevel provider. I did not personally evaluate, interact with , or disposition this patient.
== END 2018-11-07 17:43 | disposition home or self-care (01) ==
LOC: UCEAST 16:25
DX: H65.02 Acute serous otitis media, left ear (principal)
CPT/HCPCS: 99212; G0463

== ENCOUNTER 2019-05-02 16:58 | Emergency (ER) | payer OTHER ==
--- OUTSIDE RECORDS SUMMARY | 2019-05-02 17:08 | XMS REPORT | Continuity of Care Document ---
:1980 External Reference #:[id number] Author Name aSeid Swartz M.D. 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 Unavailable [facility] Management Assistant [facility] - Care Team Information Brazing Machine Operator [phone] [facility]s [facility] - Care Team Information Brazing Machine Operator [phone] [facility] - Pain Medicine Care Team Information Brazing Machine Operator [phone] Sleep Clinic - Sleep Disorder Care Team Information Brazing Machine Operator [phone] Diagnostic [facility] - Care Team Information Brazing Machine Operator Orthopaedic Surgery Problems Active Problems Provider Date Hypothyroidism Avery Joy D.O. Onset: 04/18/2014 Vitamin D deficiency Avery Joy D.O. Onset: 09/25/2014 Migraine with typical aura Avery Joy D.O. Onset: 09/25/2014 Localized, primary osteoarthritis Saeid Swartz M.D. Onset: 12/29/2017 Low back pain Saeid Swartz M.D. Onset: 12/29/2017 Social History Type Date Description Comments Sex Unknown Tobacco Use Reviewed: 04/17/19 Never Smoked Cigarettes Smoking Status Reviewed: 04/17/19 Never Smoked Cigarettes ETOH Use Rarely consumes alcohol Recreational Drug Use Denies Drug Use Tobacco Use Start: Unknown Patient has never smoked Tobacco Use Start: Unknown Non Smoker Exercise Type/Frequency Exercises regularly every day working out Allergies, Adverse Reactions, Alerts Active Allergies Reaction Severity Comments Date Sulfa hives 12/21/2011 Medications Active Medications SIG Qnty Indications Ordering Provider Date Omeprazole 1 by mouth every 30caps R10.13 Saeid Swartz, 04/17/2019 40mg day for abdominal M.D. Capsules DR lianna R11.0 Pregabalin 1 capsule by mouth 90caps M25.561 Saeid Swartz, 04/17/2019 50mg Capsules 2x/day (except day M.D. 1 take only a bedtime dose) for pain; may increase to 3x/day on day 4 if needed Cane use as needed M25.561 Saeid Swartz, [facility] Levothyroxine Sodium 1 by mouth every 90tabs E03.9 Saeid Swartz, 2018 75mcg morning on an M.D. Tablets empty stomach; blood test due early June 2019 Lo Loestrin Fe take one a day as Unknown 09/13/2018 1mg-10 mcg / directed starting 10 mcg Tablets on 09/16/18 History Medications Multivitamin Adult 1 by mouth every day Unknown 11/01/2018 - 04/16/2019 Tablets Medications Administered in Office Medication SIG Qnty Indications Ordering Provider Date TB Intradermal Test Saeid Swartz M.D. 12/29/2017 Injection injection, kenalog, 10 mg Avery Joy D.OStefani 07/18/2017 Injection TB Intradermal Test Nurse's Schedule 01/13/2016 Injection Toradol 15MG. Avery Joy D.OStefani 03/22/2013 Injection SC/Im Injections Avery Joy D.O. 03/22/2013 Injection Immunizations CPT Code Status Date Vaccine Lot # [id number] Given 04/17/2019 Influenza Virus Vaccine, Quadrivalent, Split, [id number] Preservative Free 42581 Given 03/20/2017 Influenza Virus Vaccine, Quadrivalent, Split, [id number] Preservative Free 85031 Given 06/14/2016 Influenza Virus Vaccine, Quadrivalent, Split, [id number] Preservative Free 45644 Given 05/04/2015 Influenza Virus Vaccine, Quadrivalent, Split, [id number] Preservative Free 84082 Given 02/22/2013 Flu, Split Virus 3Yrs [id number] 56890 Given 05/11/2012 Flu Vaccine Split Virus 3Yrs And Older [id number] 46973 Given 12/04/2010 Adacel or Boostrix, TDaP Vital Signs Date Vital Result Comment 04/17/2019 10:17am BP Systolic 120 mmHg BP Diastolic 70 mmHg Height 66 inches 5'6" Weight 198.00 lb BMI (Body Mass Index) 32.0 kg/m2 11/02/2018 4:20pm BP Systolic 120 mmHg BP Diastolic 80 mmHg Weight 199.50 lb w/sneakers Results Description No Information Available Procedures Date Code Description Status 01/04/2019 [id number] Mammogram Completed Medical Devices Description No Information Available Encounters Type Date Location Provider Dx Diagnosis Office Visit 04/17/2019 Main Office Saeid Swartz M25.561 Pain in right knee 10:15a M.D. M17.11 Unilateral primary osteoarthritis, right knee R10.13 Epigastric pain R11.0 Nausea E03.9 Hypothyroidism, unspecified Z23 Encounter for immunization Z68.32 Body mass index (BMI) 32.0-32.9, adult Office Visit 11/02/2018 4:15p Main Office Saeid Swartz M25.561 Pain in right M.D. knee M17.11 Unilateral primary osteoarthritis, right knee E03.9 Hypothyroidism, unspecified Assessments Date Code Description Provider 04/17/2019 M25.561 Pain in right knee Saeid Swartz M.D. 04/17/2019 M17.11 Unilateral primary osteoarthritis, right Saeid Swartz M.D. knee 04/17/2019 R10.13 Epigastric pain Saeid Swartz M.D. 04/17/2019 R11.0 Nausea Saeid Swartz M.D. 04/17/2019 E03.9 Hypothyroidism, unspecified Saeid Swartz M.D. 04/17/2019 Z23 Encounter for immunization Saeid Swartz M.D. 04/17/2019 Z68.32 Body mass index (BMI) 32.0-32.9, adult Saeid Swartz M.D. 11/02/2018 M25.561 Pain in right knee Saeid Swartz M.D. 11/02/2018 M17.11 Unilateral primary osteoarthritis, right Saeid Swartz M.D. knee 11/02/2018 E03.9 Hypothyroidism, unspecified Saeid Swartz M.D. Plan of Treatment Future Appointment(s):05/01/2019 4:15 pm - Saeid Swartz M.D. at Main [facility]/17/2019 - Saeid Swartz M.D.M25.561 Pain in right kneeNew Medication :Pregabalin 50 mg - 1 capsule by mouth 2x/day (except day 1 take only a bedtime dose) for pain; may increase to 3x/day on day 4 if neededComments:Discussed trial of Pregabalin. S/E profile reviewed. Ultimately she will require TKR.Follow up:Stop taking Ibuprofen! RTO in about 2 coouwT59.11 Unilateral primary osteoarthritis, right kneeReferral:[facility], Surgery,LfgewkhjmiZ76.13 Epigastric painNew Medication:Omeprazole 40 mg - 1 by mouth every day for abdominal painComments:Suspect frequent use of high dose Ibuprofen plays into her GI Sxs. ADvised D/C NSAIDs, start omeprazole, see how things progress before deciding on need for further eval nad on Tx plan.R11.0 NauseaNew Medication:Omeprazole 40 mg - 1 by mouth every day for abdominal painComments:as xtmwsP45.9 Hypothyroidism, unspecifiedComments:Resume levothyroxine. Get TSH BT in early Jun.Z23 Encounter for olckndmadmsaK77.32 Body mass index (BMI) 32.0-32.9, adult Functional Status Description No Information Available Mental Status Description No Information Available Referrals Refer to Reason for Referral Status Appt Date [facility] 38yo woman w/ longstanding and Created debilitating R knee pain in setting of OA, failed conservative treatments (see chart note for details). Would you consider surgical options incl TKR given her relatively young age? Consult and Co-treatment [address] [place] [address] [phone]
--- OUTSIDE RECORDS SUMMARY | 2019-05-02 17:08 | XMS REPORT | Continuity of Care Document ---
:1980 External Reference #:[id number] Author Name Saeid Swartz M.D. Address [address] [facility] [address] [place] [address] Care Team Providers Name Role Phone HCP given Care Team Information Transplant Rn Unavailable [facility] - Care Team Information Transplant Rn [phone] [facility] - Care Team Information Transplant Rn [phone] Gastro[facility]ology Pain [facility] - Pain Medicine Care Team Information Transplant Rn [phone] Sleep Clinic - Sleep Disorder Care Team Information Transplant Rn [phone] Diagnostic [facility] - Care Team Information Transplant Rn [phone] Orthopaedic Surgery Problems Active Problems Provider Date Hypothyroidism Avery Joy D.O. Onset: 04/18/2014 Vitamin D deficiency Avery Joy D.O. Onset: 09/25/2014 Migraine with typical aura Avery Joy D.O. Onset: 09/25/2014 Localized, primary osteoarthritis Saeid Swartz M.D. Onset: 12/29/2017 Low back pain Seaid Swartz M.D. Onset: 12/29/2017 Social History Type [...] Medications SIG Qnty Indications Ordering Provider Date Pregabalin 1 capsule by mouth M25.561 Saeid Swartz, 05/01/2019 50mg 2x/day; increase M.D. Capsules to 2 capsules 2x/day after a few days; for pain in back and knee M54.5 Famotidine take 1 tablet by 7tabs R10.13 Saeid Swartz, 05/01/2019 20mg Tablets mouth every day for 1 M.D. week (starting when you run out of omeprazole in early May) R11.0 Omeprazole 1 by mouth every day 30caps R10.13 Saeid Swartz, 04/17/2019 40mg for abdominal pain M.D. Capsules DR R11.0 Cane use as needed M25.561 Saeid Swartz, 11/02/2018 Misc M.D. Levothyroxine Sodium 1 by mouth every 90tabs E03.9 Saeid Swartz, 2018 75mcg morning on an M.D. Tablets empty stomach; blood test due early June 2019 Lo Loestrin Fe take one a day as Unknown 09/13/2018 1mg-10 mcg / directed starting 10 mcg Tablets on 09/16/18 History Medications Pregabalin 1 capsule by 90caps M25.561 Saeid Swartz, 04/17/2019 - 50mg mouth 2x/day M.D. 05/01/2019 Capsules (except day 1 take only a bedtime dose) for pain; may increase to 3x/day on day 4 if needed M54.5 Multivitamin Adult 1 by mouth every day [...] CPT Code Status Date Vaccine Lot # [id number] Given 04/17/2019 Influenza Virus Vaccine, Quadrivalent, Split, [id number] Preservative Free 62552 Given 03/20/2017 Influenza Virus Vaccine, Quadrivalent, Split, [id number] Preservative Free 00288 Given 06/14/2016 Influenza Virus Vaccine, Quadrivalent, Split, [id number] Preservative Free 63530 Given 05/04/2015 Influenza Virus Vaccine, Quadrivalent, Split, [id number] Preservative Free 60873 Given 02/22/2013 Flu, Split Virus 3Yrs [id number] 58144 Given 05/11/2012 Flu Vaccine Split Virus 3Yrs And Older [id number] 94026 Given 12/04/2010 Adacel or Boostrix, TDaP Vital Signs Date Vital Result Comment 05/01/2019 4:46pm BP Systolic 110 mmHg BP Diastolic 62 mmHg Body Temperature 98.4 F Weight 199.00 lb w/boots 04/17/2019 10:17am BP Systolic 120 mmHg BP Diastolic 70 mmHg Height 66 inches 5'6" Weight 198.00 lb BMI (Body Mass Index) 32.0 kg/m2 Results Description No Information Available Procedures Date Code Description Status 01/04/2019 [id number] Mammogram Completed Medical Devices Description No Information Available Encounters Type Date Location Provider Dx Diagnosis Office Visit 05/01/2019 Main Office Saeid Swartz M25.561 Pain in right knee 4:15p M.DStefani M17.11 Unilateral primary osteoarthritis, right knee M54.5 Low back pain R10.13 Epigastric pain R11.0 Nausea E03.9 Hypothyroidism, unspecified J06.9 Acute upper respiratory infection, unspecified Office Visit 04/17/2019 10:15a Main Office Saeid Swartz M25.561 Pain in right M.D. knee M17.11 Unilateral primary osteoarthritis, right knee R10.13 Epigastric pain R11.0 Nausea E03.9 Hypothyroidism, unspecified Z23 Encounter for immunization Z68.32 Body mass index (BMI) 32.0-32.9, adult Office Visit 11/02/2018 4:15p Main Office Saeid Swartz M25.561 Pain in right M.D. knee M17.11 Unilateral primary osteoarthritis, right knee E03.9 Hypothyroidism, unspecified Assessments Date Code Description Provider 05/01/2019 M25.561 Pain in right knee Saeid Swartz M.D. 05/01/2019 M17.11 Unilateral primary osteoarthritis, right Saeid Swartz M.D. knee 05/01/2019 M54.5 Low back pain Saeid Swartz M.D. 05/01/2019 R10.13 Epigastric pain Saeid Swartz M.D. 05/01/2019 R11.0 Nausea Saeid Swartz M.D. 05/01/2019 E03.9 Hypothyroidism, unspecified Saeid Swartz M.D. 05/01/2019 J06.9 Acute upper respiratory infection, Saeid Swartz M.D. unspecified 04/17/2019 M25.561 Pain in right knee Saeid [...] Saeid Swartz M.D. Plan of Treatment Future Appointment(s):05/31/2019 4:45 pm - Saeid Swartz M.D. at Main [facility]0705/01/2019 - Saeid Swartz M.D.M25.561 Pain in right kneeNew Medication :Pregabalin 50 mg - 1 capsule by mouth 2x/day; increase to 2 capsules 2x/day after a few days; for pain in back and kneeComments:Will try inc dose Pregabalin. Advised re inc risk of S/Es ezra sedation as we inc the dose.She is scheduled for consult at [facility] on 05/10Follow up:RTO 2-4 unmkvD49.11 Unilateral primary osteoarthritis, right kneeM54.5 Low back painNew Medication:Pregabalin 50 mg - 1 capsule by mouth 2x/day; increase to 2 capsules 2x/day after a few days; for pain in back and kneeComments:Doing much better on low dose pregabalin 50mg nightly. If increasing dose does not help w/ her knee pain will reduc back to the 50mg HS dosing.R10.13 Epigastric painNew Medication: Famotidine 20 mg - take 1 tablet by mouth every day for 1 week (starting when you run out of omeprazole in early May)Comments:Sxs resolved qickly w/ cessation of NSAIDs and starting a PPI. Continue PPI until completing 30d in early May then switch to H2RB for 1 week then D/CR11.0 NauseaNew Medication: Famotidine 20 mg - take 1 tablet by mouth every day for 1 week (starting when you run out of omeprazole in early May)E03.9 Hypothyroidism, qbwowqfaymhS71.9 Acute upper respiratory infection, unspecifiedComments:likely viral. Advised supportive care only (but avoid NSAIDs). RTO prn. Functional Status Description No Information Available Mental Status Description No Information Available Referrals Refer to Reason for Referral Status Appt Date [facility] 38yo woman w/ longstanding and Sent 2018 debilitating R knee pain in setting of OA, failed conservative treatments (see chart note for details). Would you consider surgical options incl TKR given her relatively young age? Consult and Co-treatment [id number] [id number] [phone]
[2019-05-02 18:56] LABS: ABS Eosinophils 0.1 10^3/ul (0-0.6); ABS Lymphocytes 1.8 10^3/ul (1.0-4.8); ABS Monocytes 0.4 10^3/ul (0-0.8); ABS Neutrophils 5.3 10^3/ul (1.5-7.7); Eosinophil % 1.3 %; Hematocrit 37 % (35-47); Hemoglobin 13.4 g/dL (12.0-16.0); Lymphocyte % 23.7 %; Mean Corpuscular HGB Conc 36 g/dL (31-36); Mean Corpuscular Hemoglobin 33 pg (27-31); Mean Corpuscular Volume 93 fL (80-97); Mean Platelet Volume 9.5 fL (7.4-10.4); Nucleated Red Blood Cells % 0.1; Platelet Count 211 10^3/uL (150-450); Red Blood Count 4.02 10^6 /uL (3.70-4.87); Red Cell Distribution Width 13 % (10-15); White Blood Count 7.6 10^3/uL (3.5-10.8)
[2019-05-02 19:18] LABS: Albumin 4.3 g/dL (3.2-5.2); Albumin/Globulin Ratio 1.4 (1-3); BUN/Creatinine Ratio 13.6 (8-20); Calcium 9.4 mg/dL (8.6-10.3); EGFR African American 136.6 (>60); EGFR Non-African American 112.9 (>60); Potassium 3.3 mmol/L (3.5-5.0); Total Bilirubin 0.8 mg/dL (0.2-1.0); Total Protein 7.3 g/dL (6.4-8.9)
--- NOTE | 2019-05-02 21:34 | ED ---
Abdominal Pain/Female - HPI Summary HPI Summary: This patient is a 38 year old female presenting to [facility] with a chief complaint of LLQ pain since this morning. She states the pain is a sharp stabbing pain. She has 2 previous pregancies and one miscarriage. She states she has been taking control. She rates her pain 7/10 in severity. No Hx of diverticulitis. She states the pain gets better when she walks around. She denies any Hematochezia. 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 Pt denies any fever, chills, erythema of eyes, sore throat, CP, SOB, cough, N/V, dysuria, hematuria, myalgia, edema, rash, or dizziness. Cholecalciferol TAB* [Vitamin D TAB*] 1,000 units PO QAM 11/16/16 [History Confirmed 07/02/18] Levothyroxine TAB* [Synthroid TAB*] 75 mcg PO QAM 11/16/16 [History Confirmed ] Multivitamin [One Daily] 1 tab PO QAM 11/16/16 [History Confirmed 07/02/18] Norgestimate-Ethinyl Estradiol [Sprintec 28 0.25-35 mg-Mcg] 1 tab PO QAM [History Confirmed 07/02/18] Cyanocobalamin (Vitamin B-12) [Hm Vitamin B12 Ultra Stre] 5,000 mcg PO DAILY [History Confirmed 07/02/18] Cetirizine HCl [Zyrtec] 10 mg PO 11/07/18 [History] Fluticasone NASAL SPRAY 50MCG* [Flonase NASAL SPRAY 50MCG*] 2 spray BOTH NARES DAILY #1 btl 11/07/18 [Rx] - History of Current Complaint Chief Complaint: EDAbdPain Stated Complaint: LOW L ABD PAIN PER PT Time Seen by Provider: 05/02/19 21:28 Hx Obtained From: Patient Hx Last Menstrual Period: end September 2017 Onset/Duration: Lasting Hours Timing: Constant Pain Intensity: 7 Pain Scale Used: 0-10 Numeric Location: Discrete At: LLQ Allergies/Adverse Reactions: Allergies Allergy/AdvReac Type Severity Reaction Status Date / Time Sulfa (Sulfonamide Allergy Severe Hives Verified 05/02/19 17:04 Antibiotics) PMH/Surg Hx/FS Hx/Imm Hx Endocrine/Hematology History: Reports: Hx Thyroid Disease Denies: Hx Diabetes Cardiovascular History: Denies: Hx Hypertension, Hx Pacemaker/ICD GI History: Denies: Hx Cirrhosis History: Denies: Hx Dialysis, Hx Renal Disease Musculoskeletal History: Reports: Hx Arthritis, Hx Back Problems Sensory History: Denies: Hx Contacts or Glasses, Hx Hearing Aid Opthamlomology History: Denies: Hx Contacts or Glasses Neurological History: Reports: Hx Migraine, Other Neuro Impairments/Disorders - PAIN CLINIC PT Psychiatric History: Reports: Hx Anxiety, Hx Depression Denies: Hx Panic Disorder - Surgical History Surgery Procedure, Year, and Place: THYROID DUCT CYST REMOVED. ENDOSCOPY Hx Anesthesia Reactions: No Infectious Disease History: No Infectious Disease History: Denies: Traveled Outside the [place] in Last 30 Days - Family History Known Family History: Positive: Cardiac Disease - Social History Alcohol Use: Occasionally Substance Use Type: Reports: None Smoking Status (MU): Never Smoked Tobacco Review of Systems Negative: Fever, Chills Negative: Erythema Negative: Sore Throat Negative: Chest Pain Negative: Shortness Of Breath, Cough Positive: Abdominal Pain, Other - Denies hematochezia. Negative: Vomiting, Nausea Negative: dysuria, hematuria Negative: Myalgia, Edema Negative: Rash Neurological: Other - Neg: Dizziness All Other Systems Reviewed And Are Negative: No Physical Exam - Summary Physical Exam Summary: Constitutional: Well-developed, Well-nourished, Alert. (-) Distressed Skin: Warm, Dry HENT: Normocephalic; Atraumatic Eyes: Conjunctiva normal Neck: Musculoskeletal ROM normal neck. (-) JVD, (-) Stridor, (-) Tracheal deviation Cardio: Rhythm regular, rate normal, Heart sounds normal; Intact distal pulses; Radial pulses are 2+ and symmetric. (-) Murmur Pulmonary/Chest wall: Effort normal. (-) Respiratory distress, (-) Wheezes, (-) Rales Abd: Soft, (-) tenderness, (-) Distension, (-) Guarding, (-) Rebound Musculoskeletal: (-) Edema Lymph: (-) Cervical adenopathy Neuro: Alert, Oriented x3 Psych: Mood and affect Normal Triage Information Reviewed: Yes Vital Signs On Initial Exam: Initial Vitals Temp Pulse Resp BP Pulse Ox 97.1 F 74 14 116/69 99 12/19/19 17:01 05/02/19 17:01 05/02/19 17:01 05/02/19 17:01 05/02/19 17:01 Vital Signs Reviewed: Yes Procedures - Sedation Patient Received Moderate/Deep Sedation with Procedure: No Diagnostics - Vital Signs Vital Signs Temp Pulse Resp BP Pulse Ox 05/02/19 20:45 97.9 F 79 16 128/77 7 05/02/19 18:29 98.0 F 81 18 107/69 100 05/02/19 17:01 97.1 F 74 14 116/69 99 - Laboratory Lab Results: Lab Results 05/02/19 05/02/19 Range/Units 18:43 18:43 WBC 7.6 (3.5-10.8) 10^3/uL RBC 4.02 (3.70-4.87) 10^6 /uL Hgb 13.4 (12.0-16.0) g/dL Hct 37 (35-47) % MCV 93 (80-97) fL MCH 33 H (27-31) pg MCHC 36 (31-36) g/dL RDW 13 (10-15) % Plt Count 211 (150-450) 10^3/uL MPV 9.5 (7.4-10.4) fL Neut % (Auto) 69.8 % Lymph % (Auto) 23.7 % [place] % (Auto) 4.7 % Eos % (Auto) 1.3 % Baso % (Auto) 0.5 % Absolute Neuts (auto) 5.3 (1.5-7.7) 10^3/ul Absolute Lymphs (auto) 1.8 (1.0-4.8) 10^3/ul Absolute Monos (auto) 0.4 (0-0.8) 10^3/ul Absolute Eos (auto) 0.1 (0-0.6) 10^3/ul Absolute Basos (auto) 0.0 (0-0.2) 10^3/ul Absolute Nucleated RBC 0.0 10^3/ul Nucleated RBC % 0.1 Sodium 135 (135-145) mmol/L Potassium 3.3 L (3.5-5.0) mmol/L Chloride 104 (101-111) mmol/L Carbon Dioxide 22 (22-32) mmol/L Anion Gap 9 (2-11) mmol/L BUN 8 (6-24) mg/dL Creatinine 0.59 (0.51-0.95) mg/dL Est GFR ( Amer) 136.6 (>60) Est GFR (Non-Af Amer) 112.9 (>60) BUN/Creatinine Ratio 13.6 (8-20) Glucose 79 (70-100) mg/dL Calcium 9.4 (8.6-10.3) mg/dL Total Bilirubin 0.80 (0.2-1.0) mg/dL AST 16 (13-39) U/L ALT 18 (7-52) U/L Alkaline Phosphatase 73 (34-104) U/L Total Protein 7.3 (6.4-8.9) g/dL Albumin 4.3 (3.2-5.2) g/dL Globulin 3.0 (2-4) g/dL Albumin/Globulin Ratio 1.4 (1-3) Beta HCG, Quant Pending Result Diagrams: 05/02/19 18:43 05/02/19 18:43 Lab Statement: Any lab studies that have been ordered have been reviewed, and results considered in the medical decision making process. - Ultrasound No standard instances Ultrasound Interpretation Completed By: Radiologist Summary of Ultrasound Findings: : 1. Single live of 14 weeks. Unremarkable placenta which is posterior. The cervix is closed. 2. No adnexal masses. 3. EDGAR by today's ultrasound is 10/31/2019. ED Provider has reviewed this report. Abdominal Pain Fem Course/Dx - Course Course Of Treatment: This patient is a 38 year old female presenting to [facility] with a chief complaint of LLQ pain since this morning. US reveals 1. Single live of 14 weeks. Unremarkable placenta which is posterior. The cervix is closed. 2. No adnexal masses. 3. EDGAR by today's ultrasound is . Confirmed good ovarian blood flow by [facility] Dr. Moncada, with no sign of torsion or heterotopic . Labs unremarkable except MCH is 33 H and Potassium is 3.3 H. Her pain has been constant, the patient appears comfortable and better when shes walking around. No CVA tenderness or urinary symptoms. No signs of colitis or diverticulitis on H&P. This could be round ligament pain or musculoskeletal. A plan for discharge was discussed with the patient and she was agreeable with this plan. - Diagnoses Provider Diagnoses: LLQ pain, First trimester Discharge ED - Sign-Out/Discharge Documenting (check all that apply): Patient Departure - Discharge - Discharge Plan Condition: Stable Disposition: HOME Patient Education Materials: (ED) Referrals: Kristen Cavazos MD [Medical Doctor] - 2 Days Additional Instructions: Discontinue Lyrica, discontinue control pills. Return to ED with new or worsening symptoms. - Attestation Statements Document Initiated by Scribe: Yes Documenting Scribe: Brice Sorenson Provider For Whom Scribe is Documenting (Include Credential): Rudy De La Cruz MD Scribe Attestation: IBrice, scribed for Rudy De La Cruz MD on 05/02/19 at 2136. Status of Scribe Document: Ready
[2019-05-02] MEDS: Acetaminophen TAB* 325 MG PO ONE (21:54)
[2019-05-02 22:11] VITALS: BP 120/74
== END 2019-05-02 22:10 | disposition home or self-care (01) ==
LOC: ED 16:58
DX: O26.891 Other specified pregnancy related conditions, first trimester (principal); R10.32 Left lower quadrant pain; Z3A.14 14 weeks gestation of pregnancy; E03.9 Hypothyroidism, unspecified; F41.9 Anxiety disorder, unspecified; F32.9 Major depressive disorder, single episode, unspecified; Z79.890 Hormone replacement therapy; Z79.899 Other long term (current) drug therapy; Z88.2 Allergy status to sulfonamides
CPT/HCPCS: 36415; 76815; 80053; 84702; 85025; 99283; A9270-GY